=== PATIENT | female | born 1965 | race Asian ===

== ENCOUNTER 2020-10-29 18:27 | Outpatient (REF) | payer OTHER, SELFPAY ==
--- NOTE | 2020-10-29 18:29 | MR_ITS ---
EXAMINATION: MR LUMBAR SPINE WITHOUT CONTRAST CLINICAL INFORMATION: Lumbar region radiculopathy. COMPARISON: Lumbar spine radiographs from 06/28/2020. TECHNIQUE: MRI of the lumbar spine was obtained using routine sequences without contrast. FINDINGS: Mild degenerative grade 1 anterolisthesis of L4 on L5. Straightening of the normal cervical lordosis. Mild degenerative disc disease at L4-L5 with partial loss of disc height and desiccation. Mild Modic type II discogenic fatty change at L5-S1. Otherwise, normal homogeneous marrow signal throughout. Mild marrow edema within the posterior elements of L4-L5 suggestive of degenerative stress reaction. No additional suspicious marrow edema. The vertebral body heights are largely maintained. The conus medullaris terminates at the level of L2. The distal spinal cord is normal in appearance. No significant abnormalities of the paraspinal musculature. Mildly ectatic right-sided extrarenal pelvis. Otherwise, limited evaluation of the intra-abdominal structures without significant abnormalities. The abdominal aorta is of normal contour and caliber. AXIAL SPINAL LEVELS: T12-L1: Small central disc protrusion. There is mild right and no left facet joint arthropathy. There is no neural foraminal stenosis. There is no spinal canal stenosis. L1-L2: Shallow diffuse disc bulge. There is mild bilateral facet joint arthropathy. There is no neural foraminal stenosis. There is no spinal canal stenosis. L2-L3: Normal annular contour. There is mild right and no left facet joint arthropathy. There is no neural foraminal stenosis. There is no spinal canal stenosis. L3-L4: Small left foraminal disc protrusion. There is mild bilateral facet joint arthropathy. There is no neural foraminal stenosis. There is narrowing of the right greater than left subarticular zones with no overt spinal canal stenosis centrally. L4-L5: Mild to moderate diffuse disc bulge. There is moderate bilateral facet joint arthropathy with ligamentum flavum hypertrophy. There is moderate bilateral neural foraminal stenosis. There is stenosis of the subarticular zones with moderate spinal canal stenosis centrally. L5-S1: Shallow diffuse disc bulge. There is mild bilateral facet joint arthropathy. There is mild left and no right neural foraminal stenosis. There is no spinal canal stenosis. MR/MR lumbar spine wo con IMPRESSION: Mild to moderate multilevel degenerative spondyloarthropathy of the lumbar spine as described in detail above. Most notably, there is moderate spinal canal stenosis at L4-L5 with stenosis of the subarticular zones. There is also moderate neural foraminal stenoses at L4-L5 and mild narrowings of the subarticular zones at L3-L4. Mild marrow edema of the posterior elements of L4 and L5 suggestive of degenerative stress reaction.
== END 2020-10-29 18:28 | disposition home or self-care (01) ==
LOC: HO.MRI 18:27
PROVIDERS: PCP Internal Medicine; Visit Provider Internal Medicine
DX: M54.16 Radiculopathy, lumbar region (principal)
CPT/HCPCS: 72148

== ENCOUNTER 2020-11-28 08:58 | Outpatient (REF) | payer OTHER, SELFPAY ==
[2020-12-02 21:52] LABS: HPV mRNA E6/E7 Not Detected (Not Detected)
== END 2020-11-28 08:59 | disposition home or self-care (01) ==
LOC: HO.LAB 08:58
PROVIDERS: PCP Internal Medicine; Visit Provider Advanced Practice Midwife
DX: Z01.419 Encounter for gynecological examination (general) (routine) without abnormal findings (principal)
CPT/HCPCS: 36415; 87624; 87625; 88141; 88142

== ENCOUNTER 2020-12-16 13:32 | Outpatient (REF) | payer OTHER, SELFPAY ==
--- NOTE | ~2020-12-16 | XR_ITS ---
EXAMINATION: XR CERVICAL SPINE CLINICAL INFORMATION: Neck pain. COMPARISON: None. TECHNIQUE: 3 views of the cervical spine were obtained. FINDINGS: There is maintained cervical lordosis. Loss of C4-C5 disc height with minimal posterior cervical spondylosis is noted. The rest the disc heights are normal. There is mild levoscoliosis likely spasm. No acute fracture, dislocation or subluxation seen. The paravertebral soft tissues are normal. XR/XR cervical spine 3V IMPRESSION: Mild levoscoliosis, likely spasm. Degenerative disc changes with spondylosis at C4-C5 disc level.
== END 2020-12-16 13:33 | disposition home or self-care (01) ==
LOC: HO.HMGCX 13:32
PROVIDERS: PCP Internal Medicine; Visit Provider Internal Medicine
DX: M54.2 Cervicalgia (principal)
CPT/HCPCS: 72040

== ENCOUNTER 2020-12-20 14:00 | Outpatient (RCR) | payer OTHER, SELFPAY ==
--- NOTE | 2020-09-20 15:00 | MHC.PT.EP ---
[facility] [place] [facility] [place] Office [place] Office [address] George Trotter [address] [phone] F: [phone] F: [phone] F: [phone] F: [phone] Physical Therapy Plan of Care Date of Evaluation: 09/20/20 Date of Surgery: NA Diagnosis: trochanteric bursitis of R hip Assessment: 55 y/o F referred to PT with R trochanteric bursitis. She has pain for 3-4 months of insidious onset that is worse with prolonged sitting, standing, walking, stairs, and sleeping. Her pain travels from R lateral hip to ankle. Examination shows decreased R hip AROM, decreased R LE strength (?limited due to pain), decreased core strength, decreased R HS/ITB/pirifromis length, and increased pain. Recommend PT 2x/week for 6 weeks to address impairments, implement HEP, and optimize functional mobility. Frequency and Duration: The patient will be seen 2x/week for 6 weeks Short Term Goals: 3 weeks; 1. Initiate HEP 2. Improve R HS length to 20 degrees 3. Demonstrate neutral knee mechanics with squat 10/10x (IR genu valgus) [facility]ci Goals: 6 weeks: 1. I with HEP and self management of sx 2. Pt will be able to walk > 40min with pain < 3/10 3 Pt will be able to sleep through the night with pain < 3/10 Treatment Plan: Modalities to reduce pain, spasms and effusion. Manual therapy to restore motion and function. Therapeutic exercise to improve strength and flexibility. Neuromuscular re-education for posture and balance. Therapeutic activities to return to functional activities of daily living. Please sign and return to therapist. Thank you for your referral.
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
== END 2020-12-20 15:30 | disposition other institution (70) ==
LOC: HO.PTCHIC 14:00
PROVIDERS: PCP Internal Medicine; Visit Provider Physician Assistant
DX: M70.61 Trochanteric bursitis, right hip (principal)
CPT/HCPCS: 97110; 97112; 97140; 97161; 97530

== ENCOUNTER 2021-05-07 15:29 | Outpatient (REF) | payer OTHER, SELFPAY ==
--- NOTE | ~2021-05-07 | US_ITS ---
EXAMINATION: PELVIC ULTRASOUND CLINICAL INFORMATION: Pain COMPARISON: None TECHNIQUE: Transabdominal and transvaginal pelvic ultrasound was performed. Transvaginal exam was performed for better visualization of the uterus and ovaries. FINDINGS: The uterus is anteverted and measures 6.2 x 3.2 x 4.6 cm in dimension. No focal uterine lesion is seen. Endometrial thickness is normal measuring 0.4 cm. The ovaries are normal-appearing. The right ovary measures 1.8 x 1.3 x 1.6 cm. The left ovary measures 3.5 x 0.9 x 2.4 cm. There is no fluid in the pelvis. US/US pelvic and transvaginal IMPRESSION: Unremarkable exam.
== END 2021-05-07 15:30 | disposition home or self-care (01) ==
LOC: HO.HMGCX 15:29
PROVIDERS: PCP Internal Medicine; Visit Provider Internal Medicine
DX: R10.2 Pelvic and perineal pain (principal)
CPT/HCPCS: 76830; 76856

== ENCOUNTER 2021-09-09 16:00 | Outpatient (REF) | payer OTHER, SELFPAY ==
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
== END 2021-09-09 16:01 | disposition home or self-care (01) ==
LOC: HO.HMGCX 16:00
PROVIDERS: PCP Internal Medicine; Visit Provider Internal Medicine
DX: S60.00XA Contusion of unspecified finger without damage to nail, initial encounter (principal)
CPT/HCPCS: 73130

== ENCOUNTER 2023-04-01 23:19 | Emergency (ER) | payer OTHER, SELFPAY ==
--- NOTE | 2023-04-01 | ECG_ITS ---
Test Reason : SYNCOPE Blood Pressure : / mmHG Vent. Rate : 084 BPM Atrial Rate : 084 BPM P-R Int : 154 ms QRS Dur : 086 ms QT Int : 352 ms P-R-T Axes : 067 038 027 degrees QTc Int : 415 ms Normal sinus rhythm Normal ECG No previous ECGs available Referred By: Generic ED Physician Electronically Signed By:ASHISH EDEN
[2023-04-01 23:20] VITALS: BP 144/86; PULSE 120; O2SAT 98
[2023-04-01 23:36] VITALS: BP 122/79; BP 146/88; PULSE 120; PULSE 93; RESP 22; TEMP 36.6; O2SAT 100; O2SAT 99; BMI 27.6
[2023-04-01 23:41] VITALS: PULSE 95; O2SAT 100
[2023-04-01 23:59] LABS: MANUAL DIFF FLAG NO
[2023-04-02] LABS: Basophils Absolute Auto 0.1 X10*3/uL (0.0-0.2); Basophils Percent Auto 0.8 % (0-2); Eosinophils Absolute Auto 0.3 X10*3/uL (0.0-0.4); Eosinophils Percent Auto 2.7 % (0-4); Hematocrit 34.4 % (37.0-47.0); Hemoglobin 11.1 g/dl (12.0-16.0); Imm Gran Abs Auto 0.03 X10*3/uL (0.00-0.03); Imm Gran Pct Auto 0.3 % (0.0-0.4); Mean Corpuscular HGB Conc 32.3 g/dl (31.0-35.0); Mean Corpuscular Hemoglobin 27.9 pg (27.0-33.0); Mean Corpuscular Volume 86.4 fL (80.0-98.0); Mean Platelet Volume 9.4 fL (9.4-12.3); Monocytes Absolute Auto 0.7 X10*3/uL (0.1-1.2); Monocytes Percent Auto 7.7 % (2-11); Neutrophils Absolute Auto 6.2 x10*3/uL (2.0-8.3); Neutrophils Percent Auto 66.5 % (45-73); Platelet Count 213 X10*3/uL (160-400); Red Blood Count 3.98 X10*6/uL (4.20-5.50); Red Cell Distribution Width 13.4 % (11.0-16.0); White Blood Count 9.3 X10*3/uL (4.8-10.8)
[2023-04-02 00:23] LABS: Alanine Aminotransferase 22 U/L (0-31); Albumin Level 4.4 g/dL (3.5-5.0); Alkaline Phosphatase 65 U/L (39-117); Anion Gap 15 (12-20); Aspartate Amino Transferase 18 U/L (5-31); Bilirubin Total 0.3 mg/dL (0.0-1.0); Blood Urea Nitrogen 23 mg/dL (9-16); Calcium 9.1 mg/dL (8.4-10.2); Carbon Dioxide 24 mmol/L (22-29); Chloride 107 mmol/L (96-108); Estimated Glomerular Filt Rate > 60; Glucose Random 103 mg/dL (60-115); Potassium 4.5 mmol/L (3.3-5.1); Sodium 141 mmol/L (135-145); Total Protein 7.8 g/dL (6.5-8.0)
[2023-04-02 00:24] LABS: Troponin-I High Sensitivity 5.4 ng/L (<3.5-17.0)
--- OUTSIDE RECORDS SUMMARY | 2023-04-02 00:53 | XMS_ITS | Continuity of Care Document ---
Author Name Unknown Organization [facility] Address [address] [place] [address], [address] [place] [address]- Care Team Providers Care Certified Medical Asst Name Role Phone Hilton BACON, Naldo Primary Care Physician [phone] [place] [facility] [place] Date[place]s): 12/11/20 - 01/16/21 [facility] [address] [place] [address], [address] [place], [place] [address] Attending Physician: Jennifer Alejo MD Referring Physician: Naldo Canela MD Allergies, Adverse Reactions, Alerts Substance Reaction Severity Status penicillin Active Medications Hydroxychloroquine = 200 mg, By Mouth, Daily, 0 Refills, Maintenance, 12/18/20 12:48:00 EST, Partial fill upon patientrequest if the prescription is for a schedule II opioid drug. Start Date: 12/18/20 Status: Ordered Naproxen By Mouth, 0 Refills, Maintenance, 12/18/20 12:47:00 EST, Partial fill upon patient request if the prescription is for a schedule II opioid drug. Start Date: 12/18/20 Status: Ordered Tramadol By Mouth, 0 Refills, Maintenance, 12/18/20 12:47:00 EST, Partial fill upon patient request if the prescription is for a schedule II opioid drug. Start Date: 12/18/20 Status: Ordered
--- OUTSIDE RECORDS SUMMARY | 2023-04-02 00:53 | XMS_ITS | Continuity of Care Document ---
Author Name Unknown Organization [facility] Address [address] [place] [address]- Care Team Providers Care Irrigation Equipment Installer Name Role Phone Hilton BACON, Asma Primary Care Physician [phone] Encounter [facility] [place] Date(s): 02/28/21 - 03/30/[address] [address]- Attending Physician: Bob Foy Admitting Physician: Admtr, Ar8 Referring Physician: Admtr, Ar8 Allergies, Adverse Reactions, Alerts Substance Reaction Severity [...] opioid drug. Start Date: 12/18/20 Status: Ordered PredniSONE short duration, By Mouth, Daily, 0 Refills, Maintenance, 02/12/21 18:37:00 EDT, Partial fill upon patient request if the prescription is for a schedule II opioid drug. Start Date: 02/12/21 Status: Ordered Tramadol By Mouth, 0 Refills, Maintenance, 12/18/20 12:47:00 EST, Partial fill upon patient request if the prescription is for a schedule II opioid drug. Start Date: 12/18/20 Status: Ordered
--- OUTSIDE RECORDS SUMMARY | 2023-04-02 00:53 | XMS_ITS | Continuity of Care Document ---
Author Name Unknown Organization [facility] Address [address] [place] [address] [place], [address] [place] [address]- Care Team Providers Care Chemistry Technician Name Role Phone Hilton BACON, Asma Primary Care Physician Encounter [facility] [place] Date(s): 12/05/20 - 01/04/21 [facility] [address] [place] [address], [address] [place], [place] [address] Allergies, Adverse Reactions, Alerts Substance Reaction Severity [...]
--- OUTSIDE RECORDS SUMMARY | 2023-04-02 00:53 | XMS_ITS | Continuity of Care Document ---
Author Name Unknown Organization [facility] Address [address] [place] [address], [address] [place] [address]- Care Team Providers Care Curbstone Setter Name Role Phone Hilton BACON, Naldo Primary Care Physician [place] [facility] [place]): [place] 01/15/21 [facility] [address] [place] [address], [address] [place], [place] [address] Attending Physician: Reinaldo Michele MD Referring Physician: Naldo Canela MD Allergies, [...]
--- OUTSIDE RECORDS SUMMARY | 2023-04-02 00:53 | XMS_ITS | Continuity of Care Document ---
Author Name Unknown Organization [facility] Address [address] [place] [address], [address] [place] [address]- Care Team Providers Care Railroad Track Repair Supervisor Name Role Phone Hilton BACON, Asma Primary Care Physician Encounter [facility] [place] Date(s): 12/26/20 - 01/25/21 [facility] [address] [place] [address], [address] [place], [place] [address] Attending Physician: Bob Foy Admitting Physician: AdmtrBob Referring Physician: Admtr, Ar8 Allergies, Adverse Reactions, [...]
--- OUTSIDE RECORDS SUMMARY | 2023-04-02 00:53 | XMS_ITS | Continuity of Care Document ---
Author Name Unknown Organization [facility] Address [address] [place] [address]- Care Team Providers Care Phone Specialist Name Role Phone Hilton BACON, Asma Primary Care Physician Encounter [facility] [place] Date(s): 07/11/21 - 08/10/21 [facility] [address] [address]- Attending Physician: Bob Foy Admitting Physician: AdmtrBob [...]
--- NOTE | 2023-04-02 01:09 | ED.SYNCOPE ---
HPI - Syncope General Chief Complaint: Syncope Stated Complaint: syncope episode after hyperventilation Time Seen by Provider: 04/02/23 00:59 Source: patient and family Mode of arrival: EMS Limitations: no limitations History of Present Illness HPI narrative: Patient comes to the emergency room complaining a syncopal episode. Unfortunately, earlier today, patient is 35-year-old son unexpectedly. Patient denies any chest pain or shortness of breath. Related Data Home Medications Medication Instructions Recorded Confirmed hydroxychloroquine 200 mg tablet 200 mg PO BID 10/22/20 04/29/21 simvastatin 40 mg tablet 40 mg PO BEDTIME 10/22/20 04/29/21 Previous Rx's Medication Instructions Recorded Lumbar brace #1 ea 02/18/21 baclofen 10 mg tablet 10 mg PO BEDTIME PRN muscle spasm 03/02/21 30 days #30 tabs naproxen 500 mg tablet 500 mg PO BID #20 tabs 09/11/21 lorazepam 1 mg tablet (Ativan) 1 mg PO BID PRN anxiety #7 tabs 04/02/23 Allergies Allergy/AdvReac Type Severity Reaction Status Date / Time Penicillins [PENICILLINS] Allergy Intermediate SWELLING Verified 09/09/21 15:40 penicillin V Allergy Unknown swelling Verified 09/09/21 15:40 Review of Systems Review of Systems: Constitutional : No Weight loss, No Fever, No Chills, No Night Sweats, No Fatigue, No Malaise ENT/Mouth : No Hearing loss, No Ear Pain, No Nasal Congestion, No Sinus Pain, No Hoarseness, No sore throat, No Rhinorrhea, No Swallowing Difficulty Eyes: No Eye Pain, No Swelling, No Redness, No Foreign Body, No Discharge, No Vision Changes Cardiovascular : No Chest Pain, No SOB, No Dyspnea on Exertion, No Orthopnea, No Edema, No Palpitations Respiratory : No Cough, No Sputum, No Wheezing, No Smoke Exposure, No Dyspnea Gastrointestinal : No Nausea, No Vomiting, No Diarrhea, No Constipation, No abdominal Pain, No Hematochezia, No Melena Genitourinary : no irregular bleeding, No Dysuria, No Urinary Frequency, No Hematuria, No Urinary Incontinence, No Urgency, No Flank Pain, No Urinary Flow Changes, No Hesitancy Musculoskeletal : No joint pain, No Myalgias, No Joint Swelling Skin : No Skin Lesions, No rash Neuro : No Weakness, No Numbness, No Paresthesias, patient had 1 syncopal episode No Dizziness, No Headache Psych : No Anxiety/Panic, No Depression, No SI/HI/AH/VH, No Social Issues, Heme/Lymph: No Bruising, No Bleeding,No Lymphadenopathy Endocrine : No Polyuria, No Polydipsia, No Temperature Intolerance [facility] Past Medical History Medical History Breast screening Cervical pain (neck) Chronic pauciarticular arthritis Constipation, slow transit Difficulty sleeping Hemorrhoids Lipid disorder Lumbar pain PPD positive Right lumbar radiculitis Vitamin D deficiency Surgical History No pertinent past surgical history Family History Family History Father Acute myocardial infarction Mother Parkinson disease Maternal Grandfather No problems noted. Maternal Grandmother No problems noted. Paternal Grandfather No problems noted. Paternal Grandmother No problems noted. Brother No problems noted. Brother No problems noted. Sister No problems noted. Son No problems noted. Daughter No problems noted. Daughter No problems noted. Daughter No problems noted. Social History Social History Housing: House Alcohol intake: never Patient Tobacco Use Status: Never used Tobacco Second Hand Smoke Exposure: No Advance Directives: No Advance Directives Information Provided: Yes Current occupational status: employed Sexual orientation: Straight/Heterosexual Gender identity: Female Physical Exam Vital Signs: Vital Signs: Last Vital Signs Temp 97.9 F 04/01/23 23:36 Pulse 93 04/01/23 23:36 Resp 22 H 04/01/23 23:36 BP 122/79 04/01/23 23:36 Pulse Ox 100 04/01/23 23:41 O2 Del Method Room Air 04/01/23 23:41 BMI result Body Mass Index 27.6 Medical Decision Making Medical Decision Making MDM Narrative: -interpretation of EKG: Sinus rhythm, heart rate 84, no ST segment depression or elevation, no T-wave inversion, QTC 415 -troponin 1. Negative -patient likely had a vasovagal symptoms given the unfortunate circumstances -patient denies any chest pain or shortness of breath. Lab Data 04/01/23 23:55 04/01/23 23:55 Labs: Lab Results 04/01/23 04/01/23 04/01/23 Range/Units 23:55 23:55 23:55 WBC 9.3 (4.8-10.8) X10*3/uL RBC 3.98 L (4.20-5.50) X10*6/uL Hgb 11.1 L (12.0-16.0) g/dl Hct 34.4 L (37.0-47.0) % MCV 86.4 (80.0-98.0) fL MCH 27.9 (27.0-33.0) pg MCHC 32.3 (31.0-35.0) g/dl RDW 13.4 (11.0-16.0) % Plt Count 213 (160-400) X10*3/uL MPV 9.4 (9.4-12.3) fL Immature Gran % (Auto) 0.3 (0.0-0.4) % Neut % (Auto) 66.5 (45-73) % Lymph % (Auto) 22.0 (20-40) % [place] % (Auto) 7.7 (2-11) % Eos % (Auto) 2.7 (0-4) % Baso % (Auto) 0.8 (0-2) % Lymph # (Auto) 2.0 (1.2-4.9) X10*3/uL [place] # (Auto) 0.7 (0.1-1.2) X10*3/uL Eos # (Auto) 0.3 (0.0-0.4) X10*3/uL Baso # (Auto) 0.1 (0.0-0.2) X10*3/uL Abs Immat Gran (auto) 0.03 (0.00-0.03) X10*3/uL Absolute Neuts (auto) 6.2 (2.0-8.3) x10*3/uL Absolute Nucleated RBC 0.000 (0.0-0.012) X10*3/uL Nucleated RBC % (auto) 0.0 (0.0-0.2) /100WBC Sodium 141 (135-145) mmol/L Potassium 4.5 (3.3-5.1) mmol/L Chloride 107 (96-108) mmol/L Carbon Dioxide 24 (22-29) mmol/L Anion Gap 15 (12-20) BUN 23 H (9-16) mg/dL Creatinine 0.91 (0.5-1.4) mg/dL Estim Creat Clear Calc 70.0 Estimated GFR > 60 Random Glucose 103 (60-115) mg/dL Calcium 9.1 (8.4-10.2) mg/dL Total Bilirubin 0.3 (0.0-1.0) mg/dL AST 18 (5-31) U/L ALT 22 (0-31) U/L Alkaline Phosphatase 65 (39-117) U/L Troponin I High Sens 5.4 (<3.5-17.0) ng/L Total Protein 7.8 (6.5-8.0) g/dL Albumin 4.4 (3.5-5.0) g/dL Discharge Plan Discharge Clinical Impression: Vasovagal syncope Patient Disposition: Home, Self-Care Instructions: Syncope (ED) Additional Instructions: Please follow-up with your primary care physician tomorrow. If you have any worsening or new symptoms, please return to the emergency room or call 911 Prescriptions: New lorazepam [Ativan] 1 mg tablet 1 mg PO BID PRN (Reason: anxiety) Qty: 7 0RF No Action (DME) Lumbar brace Medium See Rx Instructions .Route .MEDSUPPLY Qty: 1 0RF Rx Instructions: As directed baclofen 10 mg tablet 10 mg PO BEDTIME PRN (Reason: muscle spasm) 30 Days Qty: 30 0RF naproxen 500 mg tablet 500 mg PO BID Qty: 20 0RF simvastatin 40 mg tablet 40 mg PO BEDTIME hydroxychloroquine 200 mg tablet 200 mg PO BID
[2023-04-02] MEDS: LORazepam 1 MG TABLET PO (01:15)
[2023-04-02 01:25] VITALS: BP 132/69; PULSE 89; RESP 16; TEMP 36.8; O2SAT 99
== END 2023-04-02 01:27 | disposition home or self-care (01) ==
PROVIDERS: Emergency Provider Emergency Medicine
DX: R55 Syncope and collapse (principal); E78.5 Hyperlipidemia, unspecified; Z79.02 Long term (current) use of antithrombotics/antiplatelets; Z79.899 Other long term (current) drug therapy
CPT/HCPCS: 36415; 80053; 84484; 85025; 93005; 99283; 99285

== ENCOUNTER 2023-09-24 13:52 | Outpatient (AMB) | payer OTHER, SELFPAY ==
--- NOTE | 2023-09-24 14:00 | MHC.PC.OV ---
Vital Signs 09/24/23 14:02 Height 5 ft 6 in Weight 158 lb 6 oz BMI 25.6 BP 104/66 Blood Pressure Location Rt brachial Position Sitting Pulse 82 Pulse Source Pulse Oximeter Pulse Oximetry (%) 96 Oxygen Delivery Method Room Air Intake Visit Reasons: Left leg pain Allergies Penicillins [PENICILLINS] Allergy (Intermediate, Verified 09/24/23 14:03) SWELLING penicillin V Allergy (Unknown, Verified 09/24/23 14:03) swelling Medication List - Last Reconciled 09/24/23 by Naldo Canela MD baclofen 10 mg PO BEDTIME PRN 30 days hydroxychloroquine 200 mg PO BID lorazepam (Ativan) 1 mg PO BID PRN lorazepam 1 mg PO BID PRN [Lumbar brace As directed] simvastatin 40 mg PO BEDTIME Tobacco use date assessed: 09/24/23 Dental Screening Dental Screen Date: 09/24/23 Did you have a dental visit in the last 12 months?: Yes Did you have a dental problem in the last 6 months where you did not have access to dental care?: No Was dental information given to patient?: Patient has dentist HPI Left leg pain HPI Details Patient is 58-year-old female with a history of rheumatoid arthritis came in with a chief complaint of pain lower back radiating to left upper leg She had MRI lumbar spine 2020 Which showed Mild to moderate multilevel degenerative spondyloarthropathy of the lumbar spine as described in detail above. Most notably, there is moderate spinal canal stenosis at L4-L5 with stenosis of the subarticular zones. There is also moderate neural foraminal stenoses at L4-L5 and mild narrowings of the subarticular zones at L3-L4. Mild marrow edema of the posterior elements of L4 and L5 suggestive of degenerative stress reaction. Taking diclofenic thru [facility]umatology [facility] had cortison injection through him as well, which did help her for 3 wks Patient says that she is avoiding to get another course of cortisone injection Currently patient is on hydrochloroquine through rheumatology Labs are through rheumatology I am prescribing a tramadol to be taken at night and prednisone 20 mg once a day for 7 days [facility] Medical History Cervical pain (neck) Breast screening Right lumbar radiculitis Lumbar pain Difficulty sleeping Vitamin D deficiency Constipation, slow transit Lipid disorder Hemorrhoids PPD positive Chronic pauciarticular arthritis Surgical History No pertinent past surgical history Family History Father Acute myocardial infarction Mother Parkinson disease Maternal Grandfather No problems noted. Maternal Grandmother No problems noted. Paternal Grandfather No problems noted. Paternal Grandmother No problems noted. Brother No problems noted. Brother No problems noted. Sister No problems noted. Son No problems noted. Daughter No problems noted. Daughter No problems noted. Daughter No problems noted. Social History Housing: House Alcohol intake: never Patient Tobacco Use Status: Never used Tobacco e-Cigarette/Vaping Use: Never Used Second Hand Smoke Exposure: No Current occupational status: employed Sexual orientation: Straight/Heterosexual Gender identity: Female Cognitive needs: No Hearing needs: No Vision needs: No Questionnaire PHQ-9 Over the last 2 weeks, how often have you been bothered by any of the following problems? [id number] - PHQ-9 Billing: Patient declined-do not bill Source: Developed by Drs. Reinaldo Rivera, Carly Perkins, Girish Cage and colleagues, with an educational kesha from [employer]. Thrive Questionnaire Date Thrive assessed: 09/24/23 I am a: Patient What is your living situation today?: I have a steady place to live Within the past 12 months, did the food you bought not last and you didn't have the money to get more?: Never true Within the past 12 months, did you worry whether your food would run out before you got money to buy more?: Never true Do you have trouble paying for medicines?: No Do you have trouble getting transportation to medical appointments?: No Do you have trouble paying your heating and electricity bill?: Yes Do you have trouble taking care of your child, family member or friend?: No Do you have trouble with day-to-day activities such as bathing, preparing meals, shopping, managing finances, etc.?: No Are you currently unemployed and looking for a job?: No Are you interested in more education?: No AUDIT C Alcohol Use Questionnaire (AUDIT-C) 1. How often do you have a drink containing alcohol?: Never 3. How often do you have six or more drinks on one occasion?: Never Total Score: 0 Score Reviewed/Action Taken: Yes JANETH-7 AMB Questionnaire JANETH-7 Date JANETH - 7 assessed: 09/24/23 Source: Developed by Drs. Reinaldo Rivera, Carly Perkins, Girish Cage and colleagues, with an educational kesha from [employer]. JANETH-7 Assessment Billing JANETH-7 Assessment Tool: pt declined-do not bill Review of Systems Const Denies chills and Denies fever(s) ENT Denies epistaxis and Denies nasal discharge Card Denies chest pain Resp Denies chest congestion, Denies cough and Denies hemoptysis GI Denies diarrhea and Denies nausea Skin/Breast Denies rash Neuro Reports no additional complaints Psych Reports no additional complaints Endo Reports no additional complaints Physical exam (Primary Care) Vital Signs: Last Vital Signs Pulse 82 09/24/23 14:02 BP 104/66 09/24/23 14:02 Pulse Ox 96 09/24/23 14:02 Oxygen Delivery Method Room Air 09/24/23 14:02 BMI result Body Mass Index 25.6 Tobacco/Smoking Status: Tobacco use Status Tobacco use date assessed 09/24/23 09/24/23 14:03 Patient Tobacco Use Status Never used Tobacco 09/24/23 14:02 e-Cigarette/Vaping Use Never Used 09/24/23 14:03 Thrive Assessment: Date of Thrive Assessment Date Thrive assessed 09/24/23 09/24/23 14:44 Const General: cooperative, comfortable and no acute distress Orientation/consciousness: patient oriented x3 [facility] Head: Yes normocephalic Eyes General: appearance normal, both eyes and all related structures Neck Neck: Yes supple Resp Effort & Inspection: normal respiratory effort, no cough and no stridor Cardio Rhythm: regular rhythm Heart sounds: S1 normal heart sound present and S2 normal heart sound present Skin General skin exam: turgor normal Neuro Other: Straight leg negative bilateral, motor sensory intact General: patient oriented x3, tone normal and moves all extremities Extrem Right lower extremity: no edema Left lower extremity: no edema Office Procedures Flu Questionnaire Does the patient have a severe egg allergy?: No Does the patient have severe life threatening allergies?: No Does the patient have a fever or illness today?: No Has the patient ever had Guillain-Dairy Syndrome?: No Has the patient ever had any past reaction to a flu shot?: No Immunizations flu vacc [id number] 6mos up(PF) 60 mcg(15 mcgx4)/0.5 mL IM syringe Performing Provider: Naldo Canela MD Performing Location: [facility] [place] [facility] Administered by: Sara Fam CMA on 09/24/23 14:17 Dose Route Admin Location Dispensed Lot Number Expiration Date NDC [employer] 0.5 mL IM Left Deltoid 0.5 mL [id number] 05/07/24 [id number] [employer] VIS Given Date VIS Provided VIS Publication Date 09/24/23 Single Vaccine 21 Eligibility Eligibility Date Funding Source Not [facility] Eligible 09/24/23 Private Assessment and Plan Assessment & Plan (1) Spinal stenosis, lumbar: Code(s): M48.061 - Spinal stenosis, lumbar region without neurogenic claudication Qualifiers: Neurogenic claudication status: with neurogenic claudication Qualified Code(s): M48.062 - Spinal stenosis, lumbar region with neurogenic claudication (2) DJD (degenerative joint disease), lumbar: Code(s): M47.816 - Spondylosis without myelopathy or radiculopathy, lumbar region Qualifiers: Spinal osteoarthritis complication: with radiculopathy Qualified Code(s): M47.26 - Other spondylosis with radiculopathy, lumbar region (3) Spondyloarthropathy of lumbar spine: Code(s): M47.816 - Spondylosis without myelopathy or radiculopathy, lumbar region (4) Chronic pauciarticular arthritis: Code(s): M06.80 - Other specified rheumatoid arthritis, unspecified site (5) Lipid disorder: Code(s): E78.9 - Disorder of lipoprotein metabolism, unspecified (6) Pain management: Code(s): R52 - Pain, unspecified Plan Patient is 58-year-old female with a history of rheumatoid arthritis came in with a chief complaint of pain lower back radiating to left upper leg She had MRI lumbar spine 2019 Which showed Mild to moderate multilevel degenerative spondyloarthropathy of the lumbar spine as described in detail above. Most notably, there is moderate spinal canal stenosis at L4-L5 with stenosis of the subarticular zones. There is also moderate neural foraminal stenoses at L4-L5 and mild narrowings of the subarticular zones at L3-L4. Mild marrow edema of the posterior elements of L4 and L5 suggestive of degenerative stress reaction. Taking diclofenic thru Rhumatology Dr Knox [facility] had cortison injection through him as well, which did help her for 3 wks Patient says that she is avoiding to get another course of cortisone injection Currently patient is on hydrochloroquine through rheumatology Labs are through rheumatology I am prescribing a tramadol to be taken at night and prednisone 20 mg once a day for 7 days She also have a history of lipid disorder and has not been seen here for a while She will book physical exam so we can order some labs for her patient can restart the medication if needed She has stop taking it Orders: Orders Influenza [id number] Immunization Today Z23 - Encounter for immunization Medications: New prednisone 20 mg PO DAILY 7 tabs 0RF 7 days tramadol 50 mg PO BEDTIME PRN 14 tabs 0RF pain 14 days Coding Level of Care Code Est Pt Level 4 (57201) Diagnoses Spinal stenosis of lumbar region with neurogenic claudication M48.062 Neurogenic claudication status: with neurogenic claudication Osteoarthritis of spine with radiculopathy, lumbar region M47.26 Spinal osteoarthritis complication: with radiculopathy Spondyloarthropathy of lumbar spine M47.816 Chronic pauciarticular arthritis M06.80 Lipid disorder E78.9 Pain management R52
[2023-09-24 14:02] VITALS: BP 104/66; PULSE 82; O2SAT 96; BMI 25.6
== END 2023-09-24 14:31 | disposition home or self-care (01) ==
PROVIDERS: Visit Provider Internal Medicine
DX: M48.062 Spinal stenosis, lumbar region with neurogenic claudication (principal); M06.80 Other specified rheumatoid arthritis, unspecified site; M47.26 Other spondylosis with radiculopathy, lumbar region; Z23 Encounter for immunization; M47.816 Spondylosis without myelopathy or radiculopathy, lumbar region; E78.9 Disorder of lipoprotein metabolism, unspecified; R52 Pain, unspecified
CPT/HCPCS: 90471; 90686; 99214

== ENCOUNTER 2024-02-11 13:31 | Outpatient (AMB) | payer OTHER, SELFPAY ==
[2024-02-11 13:33] VITALS: BP 104/60; PULSE 86; O2SAT 98; BMI 24.5
--- NOTE | 2024-02-11 13:33 | MHC.PC.OV ---
Vital Signs 02/11/24 13:33 Height 5 ft 6 in Weight 152 lb BMI 24.5 BP 104/60 Blood Pressure Location Rt brachial Position Sitting Pulse 86 Pulse Source Pulse Oximeter Pulse Oximetry (%) 98 Oxygen Delivery Method Room Air Intake Visit Reasons: Back & abd pain, headache Intake Note: Pt is here today for a sick visit. Pt c/o headaches body aches for 2-3 weeks now.Pt also c/o muscle spasms at night that she can not sleep. Allergies Penicillins [PENICILLINS] Allergy (Intermediate, Verified 02/11/24 13:37) SWELLING penicillin V Allergy (Unknown, Verified 02/11/24 13:37) swelling Medication List - Last Reconciled 02/11/24 by Naldo Canela MD hydroxychloroquine 200 mg PO BID [Lumbar brace As directed] Tobacco use date assessed: 02/11/24 Dental Screening Dental Screen Date: 02/11/24 Did you have a dental visit in the last 12 months?: Yes Did you have a dental problem in the last 6 months where you did not have access to dental care?: No Was dental information given to patient?: Patient has dentist HPI Back & abd pain, headache HPI Details Patient is 58-year-old female came in today to talk about pressure-like feeling around her head neck and upper back area Patient says that she is not able to sleep at night as her is in hospital, she spent all day in a hospital she comes home and then she can not stop thinking. She feels exhausted and fatigued Last year in March she lost her son as well which is causing some depression. She has missed her physical exam appointment that was scheduled in December with me I am starting her on zolpidem so she can start sleeping at least, and that will help her feel better Patient is to return in 4 weeks for follow-up [facility] Medical History Cervical pain (neck) Breast screening Right lumbar radiculitis Lumbar pain Difficulty sleeping Vitamin D deficiency Constipation, slow transit Lipid disorder Hemorrhoids PPD positive Chronic pauciarticular arthritis Surgical History No pertinent past surgical history Family History Father Acute myocardial infarction Mother Parkinson disease Maternal Grandfather No problems noted. Maternal Grandmother No problems noted. Paternal Grandfather No problems noted. Paternal Grandmother No problems noted. Brother No problems noted. Brother No problems noted. Sister No problems noted. Son No problems noted. Daughter No problems noted. Daughter No problems noted. Daughter No problems noted. Social History Housing: House Alcohol intake: never Patient Tobacco Use Status: Never used Tobacco e-Cigarette/Vaping Use: Never Used Second Hand Smoke Exposure: No service: No Current occupational status: employed Sexual orientation: Straight/Heterosexual Gender identity: Female Cognitive needs: No Hearing needs: No Vision needs: No Questionnaire Thrive Questionnaire Date Thrive assessed: 09/24/23 AUDIT C Alcohol Use Questionnaire (AUDIT-C) 1. How often do you have a drink containing alcohol?: Never 3. How often do you have six or more drinks on one occasion?: Never Total Score: 0 JANETH-7 AMB Questionnaire JANETH-7 Date JANETH - 7 assessed: 09/24/23 Source: Developed by Drs. Reinaldo Rivera, Carly Perkins, Girish Cage and colleagues, with an educational kesha from [email or web address]. Review of Systems Const Denies chills and Denies fever(s) ENT Denies epistaxis and Denies nasal discharge Card Denies chest pain Resp Denies chest congestion, Denies cough and Denies hemoptysis GI Denies diarrhea and Denies nausea Skin/Breast Denies rash Neuro Reports no additional complaints Psych Reports no additional complaints Endo Reports no additional complaints Physical exam (Primary Care) Vital Signs: Last Vital Signs Pulse 86 02/11/24 13:33 BP 104/60 02/11/24 13:33 Pulse Ox 98 02/11/24 13:33 Oxygen Delivery Method Room Air 02/11/24 13:33 BMI result Body Mass Index 24.5 Tobacco/Smoking Status: Tobacco use Status Tobacco use date assessed 02/11/24 02/11/24 13:39 Patient Tobacco Use Status Never used Tobacco 02/11/24 13:39 e-Cigarette/Vaping Use Never Used 02/11/24 13:39 Thrive Assessment: Date of Thrive Assessment Date Thrive assessed 09/24/23 02/11/24 13:39 Const General: cooperative, comfortable and no acute distress Orientation/consciousness: patient oriented x3 [facility]EN[facility] Head: Yes normocephalic Eyes General: appearance normal, both eyes and all related structures Neck Neck: Yes supple Resp Effort & Inspection: normal respiratory effort, no cough and no stridor Cardio Rhythm: regular rhythm Heart sounds: S1 normal heart sound present and S2 normal heart sound present Skin General skin exam: turgor normal Neuro General: patient oriented x3, tone normal and moves all extremities Extrem Right lower extremity: no edema Left lower extremity: no edema Assessment and Plan Assessment & Plan (1) Tension headache: Code(s): G44.209 - Tension-type headache, unspecified, not intractable (2) Muscle tension pain: Code(s): M79.10 - Myalgia, unspecified site (3) Depression, major, single episode: Code(s): F32.9 - Major depressive disorder, single episode, unspecified Qualifiers: Active/Remission status: currently active Major depression episode severity: moderate Qualified Code(s): F32.1 - Major depressive disorder, single episode, moderate (4) Stress at home: Code(s): F43.9 - Reaction to severe stress, unspecified (5) Unable to sleep: Code(s): G47.00 - Insomnia, unspecified Qualifiers: Insomnia type: adjustment Qualified Code(s): F51.02 - Adjustment insomnia (6) Tired: Code(s): R53.83 - Other fatigue Plan Patient is 58-year-old female came in today to talk about pressure-like feeling around her head neck and upper back area Patient says that she is not able to sleep at night as her is in hospital, she spent all day in a hospital she comes home and then she can not stop thinking. She feels exhausted and fatigued Last year in March she lost her son as well which is causing some depression. She has missed her physical exam appointment that was scheduled in December with me I am starting her on zolpidem so she can start sleeping at least, and that will help her feel better Patient is to return in 4 weeks for follow-up Medications: New diclofenac sodium 75 mg PO BID zolpidem 10 mg PO BEDTIME PRN 30 tabs 0RF sleep Coding Level of Care Code Est Pt Level 4 (87259) Diagnoses Tension headache G44.209 Muscle tension pain M79.10 Current moderate episode of major depressive disorder without prior episode F32.1 Active/Remission status: currently active Major depression episode severity: moderate Stress at home F43.9 Adjustment insomnia F51.02 Insomnia type: adjustment Tired R53.83
== END 2024-02-11 14:02 | disposition home or self-care (01) ==
PROVIDERS: Visit Provider Internal Medicine
DX: G44.209 Tension-type headache, unspecified, not intractable (principal); M79.10 Myalgia, unspecified site; F32.1 Major depressive disorder, single episode, moderate; F43.9 Reaction to severe stress, unspecified; F51.02 Adjustment insomnia; R53.83 Other fatigue
CPT/HCPCS: 99214

== ENCOUNTER 2024-03-30 08:43 | Outpatient (AMB) | payer SELFPAY ==
--- NOTE | 2024-03-30 08:54 | A.OFFPC_ITS ---
Intake Visit Reasons: Discuss Pain~[phone] Allergies Penicillins [PENICILLINS] Allergy (Intermediate, Verified 03/30/24 10:24) SWELLING penicillin V Allergy (Unknown, Verified 03/30/24 10:24) swelling Medication List - Last Reconciled 03/30/24 by Naldo Canela MD diclofenac sodium 75 mg PO BID hydroxychloroquine 200 mg PO BID [Lumbar brace As directed] zolpidem 10 mg PO BEDTIME PRN Tobacco use date assessed: 03/30/24 Dental Screening Dental Screen Date: 03/30/24 Did you have a dental visit in the last 12 months?: Yes Did you have a dental problem in the last 6 months where you did not have access to dental care?: No Was dental information given to patient?: Patient has dentist HPI Discuss Pain~[phone] HPI Details Patient is 58 year old female in lot of stress due to sickness of her spend most of her time in hospital with him unable to sleep was c/o of BRISENO, upper back pain Hip pain, which is chronic for the patient also have depression, anxiety, lipid disorder and multiple joint arthritis i prescribed Zolpidem and diclofenic last visit 4 wks ago she felt better was able to sleep 6 hrs but dont have medication any more refill provided lab order placed to be done fasting f/u 3 M [facility] Medical History Cervical pain (neck) Breast screening Right lumbar radiculitis Lumbar pain Difficulty sleeping Vitamin D deficiency Constipation, slow transit Lipid disorder Hemorrhoids PPD positive Chronic pauciarticular arthritis Surgical History No pertinent past surgical history Family History Father Acute myocardial infarction Mother Parkinson disease Maternal Grandfather No problems noted. Maternal Grandmother No problems noted. Paternal Grandfather No problems noted. Paternal Grandmother No problems noted. Brother No problems noted. Brother No problems noted. Sister No problems noted. Son No problems noted. Daughter No problems noted. Daughter No problems noted. Daughter No problems noted. Social History Housing: House Alcohol intake: never Patient Tobacco Use Status: Never used Tobacco e-Cigarette/Vaping Use: Never Used Second Hand Smoke Exposure: No service: No Current occupational status: employed Sexual orientation: Straight/Heterosexual Gender identity: Female Cognitive needs: No Hearing needs: No Vision needs: No Questionnaire Thrive Questionnaire Date Thrive assessed: 09/24/23 AUDIT C Alcohol Use Questionnaire (AUDIT-C) 1. How often do you have a drink containing alcohol?: Never 3. How often do you have six or more drinks on one occasion?: Never Total Score: 0 Score Reviewed/Action Taken: Yes JANETH-7 AMB Questionnaire JANETH-7 Date JANETH - 7 assessed: 09/24/23 Source: Developed by Drs. Reinaldo Rivera, Carly Perkins, Girish Cage and colleagues, with an educational kesha from [employer]. Review of Systems Const Denies chills and Denies fever(s) ENT Denies epistaxis and Denies nasal discharge Card Denies chest pain Resp Denies chest congestion, Denies cough and Denies hemoptysis GI Denies diarrhea and Denies nausea Skin/Breast Denies rash Neuro Reports no additional complaints Psych Reports no additional complaints Endo Reports no additional complaints Physical exam (Primary Care) Tobacco/Smoking Status: Tobacco use Status Tobacco use date assessed 02/11/24 03/30/24 08:54 Patient Tobacco Use Status Never used Tobacco 03/30/24 08:54 e-Cigarette/Vaping Use Never Used 03/30/24 08:54 Thrive Assessment: Date of Thrive Assessment Date Thrive assessed 09/24/23 03/30/24 08:54 Telehealth Telehealth Telehealth Platform: [facility] Location of provider rendering services: practice address Location of patient: address on file Patient Identification confirmed using: Name, : Yes Telehealth method: video (attempted) Patient verbally consented to treatment: Yes Patient verbally consented to billing insurance company: Yes Patient informed of any privacy concerns related to visit: Yes Minutes spent on Phone/Video with Pt.: 16 Assessment and Plan Assessment & Plan (1) Tired: Code(s): R53.83 - Other fatigue (2) Unable to sleep: Code(s): G47.00 - Insomnia, unspecified Qualifiers: Insomnia type: adjustment Qualified Code(s): F51.02 - Adjustment insomnia (3) Stress at home: Code(s): F43.9 - Reaction to severe stress, unspecified (4) Depression, major, single episode: Code(s): F32.9 - Major depressive disorder, single episode, unspecified Qualifiers: Active/Remission status: currently active Major depression episode severity: moderate Qualified Code(s): F32.1 - Major depressive disorder, single episode, moderate (5) Muscle tension pain: Code(s): M79.10 - Myalgia, unspecified site (6) Tension headache: Code(s): G44.209 - Tension-type headache, unspecified, not intractable (7) Vitamin D deficiency: Code(s): E55.9 - Vitamin D deficiency, unspecified (8) Lipid disorder: Code(s): E78.9 - Disorder of lipoprotein metabolism, unspecified (9) Hemorrhoids: Code(s): K64.9 - Unspecified hemorrhoids Qualifiers: Hemorrhoid type: other Qualified Code(s): K64.8 - Other hemorrhoids Plan Patient is 58 year old female in lot of stress due to sickness of her spend most of her time in hospital with him unable to sleep was c/o of BRISENO, upper back pain Hip pain, which is chronic for the patient also have depression, anxiety, lipid disorder and multiple joint arthritis i prescribed Zolpidem and diclofenic last visit 4 wks ago she felt better was able to sleep 6 hrs but dont have medication any more refill provided lab order placed to be done fasting f/u 3 M Orders: Orders Complete Blood Count Auto Diff Today E55.9 - Vitamin D deficiency, unspecified, E78.9 - Disorder of lipoprotein metabolism, unspecified, F32.1 - Major depressive disorder, single episode, moderate, F43.9 - Reaction to severe stress, unspecified, F51.02 - Adjustment insomnia, G44.209 - Tension-type headache, unspecified, not intractable, K64.9 - Unspecified hemorrhoids, M79.10 - Myalgia, unspecified site, R53.83 - Other fatigue Comprehensive [place]. Panel Fast Today E55.9 - Vitamin D deficiency, unspecified, E78.9 - Disorder of lipoprotein metabolism, unspecified, F32.1 - Major depressive disorder, single episode, moderate, F43.9 - Reaction to severe stress, unspecified, F51.02 - Adjustment insomnia, G44.209 - Tension-type headache, unspecified, not intractable, K64.9 - Unspecified hemorrhoids, M79.10 - Myalgia, unspecified site, R53.83 - Other fatigue Lipid Panel Today E55.9 - Vitamin D deficiency, unspecified, E78.9 - Disorder of lipoprotein metabolism, unspecified, F32.1 - Major depressive disorder, sing le episode, moderate, F43.9 - Reaction to severe stress, unspecified, F51.02 - Adjustment insomnia, G44.209 - Tension-type headache, unspecified, not intractable, K64.9 - Unspecified hemorrhoids, M79.10 - Myalgia, unspecified site, R53.83 - Other fatigue Vitamin D 25-OH (D2 and D3) Today E55.9 - Vitamin D deficiency, unspecified, E78.9 - Disorder of lipoprotein metabolism, unspecified, F32.1 - Major depressive disorder, single episode, moderate, F43.9 - Reaction to severe stress, unspecified, F51.02 - Adjustment insomnia, G44.209 - Tension-type headache, unspecified, not intractable, K64.9 - Unspecified hemorrhoids, M79.10 - Myalgia, unspecified site, R53.83 - Other fatigue Vitamin B12 Today E55.9 - Vitamin D deficiency, unspecified, E78.9 - Disorder of lipoprotein metabolism, unspecified, F32.1 - Major depressive disorder, single episode, moderate, F43.9 - Reaction to severe stress, unspecified, F51.02 - Adjustment insomnia, G44.209 - Tension-type headache, unspecified, not intractable, K64.9 - Unspecified hemorrhoids, M79.10 - Myalgia, unspecified site, R53.83 - Other fatigue TSH reflex Free T4 Today E55.9 - Vitamin D deficiency, unspecified, E78.9 - Disorder of lipoprotein metabolism, unspecified, F32.1 - Major depressive disorder, single episode, moderate, F43.9 - Reaction to severe stress, uns pecified, F51.02 - Adjustment insomnia, G44.209 - Tension-type headache, unspecified, not intractable, K64.9 - Unspecified hemorrhoids, M79.10 - Myalgia, unspecified site, R53.83 - Other fatigue Medications: Changed From diclofenac sodium 75 mg PO BID To diclofenac sodium take it in evening with food for hip pain 50 mg PO ONCE 90 tabs 0RF 90 days Refilled zolpidem 10 mg PO BEDTIME PRN 90 tabs 0RF sleep Coding Level of Care Code Tele Est Pt Level 4 (07718) Diagnoses Tired R53.83 Adjustment insomnia F51.02 Insomnia type: adjustment Stress at home F43.9 Current moderate episode of major depressive disorder without prior episode F32.1 Active/Remission status: currently active Major depression episode severity: moderate Muscle tension pain M79.10 Tension headache G44.209 Vitamin D deficiency E55.9 Lipid disorder E78.9 Other hemorrhoids K64.8 Hemorrhoid type: other
== END 2024-03-30 13:43 | disposition home or self-care (01) ==
LOC: HO.HMGC 08:43
PROVIDERS: PCP Internal Medicine; Visit Provider Internal Medicine
DX: R53.83 Other fatigue (principal); F51.02 Adjustment insomnia; F43.9 Reaction to severe stress, unspecified; F32.1 Major depressive disorder, single episode, moderate; M79.10 Myalgia, unspecified site; G44.209 Tension-type headache, unspecified, not intractable; E55.9 Vitamin D deficiency, unspecified; E78.9 Disorder of lipoprotein metabolism, unspecified; K64.8 Other hemorrhoids
CPT/HCPCS: 99214

== ENCOUNTER 2024-07-14 08:48 | Outpatient (AMB) | payer OTHER, SELFPAY ==
--- NOTE | 2024-07-14 08:49 | MHC.PC.OV ---
Vital Signs 07/14/24 08:50 Height 5 ft 6 in Weight 149 lb 6 oz BMI 24.1 BP 98/64 Blood Pressure Location Lt brachial Position Sitting Pulse 79 Pulse Source Pulse Oximeter Pulse Oximetry (%) 95 Oxygen Delivery Method Room Air Intake Visit Reasons: Abd discomfort x 2 weeks Allergies Penicillins [PENICILLINS] Allergy (Intermediate, Verified 07/14/24 09:02) SWELLING penicillin V Allergy (Unknown, Verified 07/14/24 09:02) swelling Medication List - Last Reconciled 07/14/24 by Naldo Canela MD diclofenac sodium 50 mg PO ONCE 90 days hydroxychloroquine 200 mg PO BID zolpidem 10 mg PO BEDTIME PRN Tobacco use date assessed: 07/14/24 Dental Screening Dental Screen Date: 07/14/24 Did you have a dental visit in the last 12 months?: Yes Did you have a dental problem in the last 6 months where you did not have access to dental care?: No Was dental information given to patient?: Patient has dentist HPI Abd discomfort x 2 weeks HPI Details Patient is 59-year-old female Who recently lost her , last day she lost her son Patient is going through grieving. , having difficulty sleeping at night Last time when she was struggling with her 's health she was having similar problem I prescribed zolpidem but her insurance never covered it Patient says that she has a new insurance now and would like to take something to sleep zolpidem 5 mg 30 tablets sent to be taken as needed at night Side effect reviewed with the patient She also is complaining of right lower quadrant pain for the past 1 week Patient says that the pain is slightly worse On examination she does not have any guarding or rebound but there is a tenderness with deep pressure Patient still has her appendix I am ordering stat CT scan as patient has declined to go to emergency room Patient was notified that there could be a possibility of inflammation of appendix If CT scan is not covered for today She need to go to emergency room especially if the pain got worse, she understand She will also meet with our behavior health coordinator so we can help her set up with a therapist. Follow-up 2 weeks [facility] Medical History Cervical pain (neck) Breast screening Right lumbar radiculitis Lumbar pain Difficulty sleeping Vitamin D deficiency Constipation, slow transit Lipid disorder Hemorrhoids PPD positive Chronic pauciarticular arthritis Surgical History No pertinent past surgical history Family History Father Acute myocardial infarction Mother Parkinson disease Maternal Grandfather No problems noted. Maternal Grandmother No problems noted. Paternal Grandfather No problems noted. Paternal Grandmother No problems noted. Brother No problems noted. Brother No problems noted. Sister No problems noted. Son No problems noted. Daughter No problems noted. Daughter No problems noted. Daughter No problems noted. Social History Housing: House Alcohol intake: never Patient Tobacco Use Status: Never used Tobacco e-Cigarette/Vaping Use: Never Used Second Hand Smoke Exposure: No service: No Current occupational status: employed Sexual orientation: Straight/Heterosexual Gender identity: Female Cognitive needs: No Hearing needs: No Vision needs: No Questionnaire Thrive Questionnaire Date Thrive assessed: 07/14/24 I am a: Patient What is your living situation today?: I have a steady place to live Within the past 12 months, did the food you bought not last and you didn't have the money to get more?: Never true Within the past 12 months, did you worry whether your food would run out before you got money to buy more?: Never true Do you have trouble paying for medicines?: No Do you have trouble getting transportation to medical appointments?: No Do you have trouble paying your heating and electricity bill?: No Do you have trouble taking care of your child, family member or friend?: No Do you have trouble with day-to-day activities such as bathing, preparing meals, shopping, managing finances, etc.?: No Are you currently unemployed and looking for a job?: No Are you interested in more education?: No Please select the resources that you would like help with: None Currently or been in a relationship where the following occur: I choose not to answer THRIVE Score: 0 AUDIT C Alcohol Use Questionnaire (AUDIT-C) 1. How often do you have a drink containing alcohol?: Never 3. How often do you have six or more drinks on one occasion?: Never Total Score: 0 Score Reviewed/Action Taken: Yes JANETH-7 AMB Questionnaire JANETH-7 Date JANETH - 7 assessed: 07/14/24 Feeling nervous, anxious, or on edge: 0 = Not at all Not being able to stop or control worryin = Not at all Worrying too much about different things: 0 = Not at all Trouble relaxin = Not at all Being so restless that it is hard to sit still: 0 = Not at all Becoming easily annoyed or irritable: 0 = Not at all Feeling afraid as if something awful might happen: 0 = Not at all Total JANETH-7 score (0-4 normal; 5-9 mild; 10-14 moderate; 15-21 severe): 0 Source: Developed by Drs. Reinaldo Rivera, Carly Perkins, Girish Cage and colleagues, with an educational kesha from [employer]. JANETH-7 Assessment Billing JANETH-7 Assessment Tool: JANETH-7 Assessment 51898 Review of Systems Const Denies chills and Denies fever(s) ENT Denies epistaxis and Denies nasal discharge Card Denies chest pain Resp Denies chest congestion, Denies cough and Denies hemoptysis GI Denies diarrhea and Denies nausea Skin/Breast Denies rash Neuro Reports no additional complaints Psych Reports no additional complaints Endo Reports no additional complaints Physical exam (Primary Care) Vital Signs: Last Vital Signs Pulse 79 07/14/24 08:50 BP 98/64 07/14/24 08:50 Pulse Ox 95 07/14/24 08:50 Oxygen Delivery Method Room Air 07/14/24 08:50 BMI result Body Mass Index 24.1 Tobacco/Smoking Status: Tobacco use Status Tobacco use date assessed 07/14/24 07/14/24 09:03 Patient Tobacco Use Status Never used Tobacco 07/14/24 08:57 e-Cigarette/Vaping Use Never Used 07/14/24 08:57 Thrive Assessment: Date of Thrive Assessment Date Thrive assessed 07/14/24 07/14/24 09:03 Currently or been in a relationship where the following occur: I choose not to answer Const General: cooperative, comfortable and no acute distress Orientation/consciousness: patient oriented x3 HENMT Head: Yes normocephalic Eyes General: appearance normal, both eyes and all related structures Neck Neck: Yes supple Resp Effort & Inspection: normal respiratory effort, no cough and no stridor Cardio Rhythm: regular rhythm Heart sounds: S1 normal heart sound present and S2 normal heart sound present GI Abdomen image: 1. Pain with deep pressure no guarding no rebound bowel sounds positive Skin General skin exam: turgor normal Neuro General: patient oriented x3, tone normal and moves all extremities Extrem Right lower extremity: no edema Left lower extremity: no edema Assessment and Plan Assessment & Plan (1) Right lower quadrant pain: Code(s): R10.31 - Right lower quadrant pain (2) Grieving: Code(s): F43.21 - Adjustment disorder with depressed mood (3) Unable to sleep: Code(s): G47.00 - Insomnia, unspecified Qualifiers: Insomnia type: adjustment Qualified Code(s): F51.02 - Adjustment insomnia Plan Patient is 59-year-old female Who recently lost her , last day she lost her son Patient is going through grieving. , having difficulty sleeping at night Last time when she was struggling with her 's health she was having similar problem I prescribed zolpidem but her insurance never covered it Patient says that she has a new insurance now and would like to take something to sleep zolpidem 5 mg 30 tablets sent to be taken as needed at night Side effect reviewed with the patient She also is complaining of right lower quadrant pain for the past 1 week Patient says that the pain is slightly worse On examination she does not have any guarding or rebound but there is a tenderness with deep pressure Patient still has her appendix I am ordering stat CT scan as patient has declined to go to emergency room Patient was notified that there could be a possibility of inflammation of appendix If CT scan is not covered for today She need to go to emergency room especially if the pain got worse, she understand She will also meet with our behavior health coordinator so we can help her set up with a therapist. Follow-up 2 weeks Orders: Orders CT abdomen pelvis wo IV con Today R10.31 - Right lower quadrant pain Medications: Changed From zolpidem 10 mg PO BEDTIME PRN 90 tabs 0RF sleep To zolpidem 5 mg PO BEDTIME PRN 30 tabs 0RF sleep Discontinued diclofenac sodium take it in evening with food for hip pain Discontinued Reason: Doctor's Order 50 mg PO ONCE 90 days 90 tabs 0RF Coding Level of Care Code Est Pt Level 4 (93154) Diagnoses Right lower quadrant pain R10.31 Grieving F43.21 Adjustment insomnia F51.02 Insomnia type: adjustment Additional Codes JANETH-7 Assessment Billing - JANETH-7 Assessment Tool: JANETH-7 Assessment [id number] ([id number])
[2024-07-14 08:50] VITALS: BP 98/64; PULSE 79; O2SAT 95; BMI 24.1
== END 2024-07-14 09:34 | disposition home or self-care (01) ==
PROVIDERS: PCP Internal Medicine; Visit Provider Internal Medicine
DX: R10.31 Right lower quadrant pain (principal); F43.21 Adjustment disorder with depressed mood; F51.02 Adjustment insomnia
CPT/HCPCS: 99214

== ENCOUNTER 2024-07-17 05:59 | Outpatient (REF) | payer OTHER, SELFPAY ==
--- NOTE | ~2024-07-17 | CT_ITS ---
EXAMINATION: CT ABDOMEN AND PELVIS WITH CONTRAST CLINICAL INFORMATION: Right lower quadrant pain. COMPARISON: None available. TECHNIQUE: Multidetector volumetric images were obtained from the superior aspect of the liver through the pubic symphysis following administration 85 mL of Omnipaque 350 intravenous contrast. Sagittal and coronal reformatted images were obtained on the technologist's workstation. Oral contrast: No This CT examination was performed using dose optimization techniques as appropriate, variously including the following: *Automated exposure control *Adjustment of mA and/or kV according to patient size (this includes techniques or standardized protocols for targeted exams where dose is matched to indication/reason for exam; i.e. extremities or head) *Use of iterative reconstruction technique DLP: 324.5 mGy-cm FINDINGS: LUNG BASES: Calcified granuloma in the right lower lobe. No focal consolidation or pleural effusion. LIVER, GALLBLADDER, AND BILIARY TREE: The liver is normal in size, shape, and attenuation. No focal hepatic lesion or biliary ductal dilatation is present. The gallbladder is unremarkable with no evidence of radiopaque gallstones, gallbladder wall thickening, or obvious pericholecystic inflammatory changes. PANCREAS: Unremarkable. SPLEEN: Unremarkable. ADRENAL GLANDS: Unremarkable. KIDNEYS AND URETERS: Asymmetric dilatation of the right renal pelvis, AP diameter 2.4 cm with narrowing at the level of the ureteropelvic pelvic junction. Single nonobstructive 0.6 cm calculus in the interpolar right kidney measuring 1115 Hounsfield units, located at 7.5 cm from the skin surface of the posterior axillary line. Otherwise, normal kidneys. BLADDER: Unremarkable. GASTROINTESTINAL TRACT: The stomach and small bowel are nondilated. Oral contrast reaches the rectum. No evidence of bowel obstruction. Equivocal minimal wall thickening of the distal ileum and terminal ileum, suboptimally assessed due to incomplete distention, without significant associated inflammatory changes. A few colonic diverticuli without significant pericolonic inflammatory changes. ABDOMINAL WALL: No significant hernia is appreciated. LYMPH NODES: No lymphadenopathy. VASCULAR: Normal caliber of the abdominal aorta. PELVIC VISCERA: Unremarkable. OSSEOUS STRUCTURES: Grade 1 anterolisthesis of L4 on L5. Degenerative changes of the spine. No acute or aggressive appearing osseous findings. CT/CT abdomen pelvis w IV con IMPRESSION: 1. Asymmetric dilatation of the right renal pelvis with narrowing at the level of the ureteropelvic junction suggesting a degree of UPJ obstruction; recommend urology referral and further evaluation with urogram as warranted. 2. Nonobstructive 0.6 cm calculus in the interpolar right kidney. 3. Equivocal minimal wall thickening of the distal ileum and terminal ileum that could be seen with enteritis/inflammatory bowel disease, though evaluation is limited due to incomplete luminal distention. No significant associated inflammatory changes. Recommend clinical correlation and referral to GI specialist as clinically warranted. 4. Mild colonic diverticulosis without evidence of acute diverticulitis. Electronically signed by: Damari Jameson MD 07/17/2024 12:09 PM EDT
[2024-07-17] MEDS: iohexoL 350 MG/ML 100 ML INFUS..BTL 85 ML IV (09:08)
[2024-07-18 08:47] LABS: Creatinine POC 0.8 mg/dL (0.5-1.4); GFR POC > 60
== END 2024-07-17 06:00 | disposition home or self-care (01) ==
LOC: HO.CT 05:59
PROVIDERS: PCP Internal Medicine; Visit Provider Internal Medicine
DX: R10.31 Right lower quadrant pain (principal)
CPT/HCPCS: 74177; 82565; Q9967

== ENCOUNTER 2024-07-20 08:19 | Outpatient (AMB) | payer OTHER, SELFPAY ==
--- NOTE | 2024-07-20 08:20 | A.OFFPC_ITS ---
Intake Visit Reasons: Review CT scan Allergies Penicillins [PENICILLINS] Allergy (Intermediate, Verified 07/20/24 08:20) SWELLING penicillin V Allergy (Unknown, Verified 07/20/24 08:20) swelling Medication List - Last Reconciled 07/21/24 by Naldo Canela MD hydroxychloroquine 200 mg PO BID zolpidem 5 mg PO BEDTIME PRN Tobacco use date assessed: 07/14/24 Dental Screening Dental Screen Date: 07/14/[address] scan HPI Details Patient is 59-year-old female this is a telemedicine video conference Patient was evaluated few days ago when she complained of pain lower abdomen On examination she had tenderness right lower quadrant We did a stat CT scan which showed 1. Asymmetric dilatation of the right r enal pelvis with narrowing at the level of the ureteropelvic junction suggesting a degree of UPJ obstruction; recommend urology referral and further evaluation with urogram as warranted. 2. Nonobstructive 0.6 cm calculus in th e interpolar right kidney. 3. Equivocal minimal wall thickening of the distal ileum and terminal ileum that could be seen with enteritis/inflammatory bowel disease, though evaluation is limited due to incomplete luminal distention. No significant associated inflammatory changes. 4. Mild colonic diverticulosis without evidence of acute diverticulitis. Her symptoms have not worsened She has no pain or blood in her bowels, bowel movements are regular No nausea no vomiting I have placed a referral to Urology for further evaluation regarding UPJ obstruction CT scan report explained to patient. [facility] Medical History Cervical pain (neck) Breast screening Right lumbar radiculitis Lumbar pain Difficulty sleeping Vitamin D deficiency Constipation, slow transit Lipid disorder Hemorrhoids PPD positive Chronic pauciarticular arthritis Surgical History No pertinent past surgical history Family History Father Acute myocardial infarction Mother Parkinson disease Maternal Grandfather No problems noted. Maternal Grandmother No problems noted. Paternal Grandfather No problems noted. Paternal Grandmother No problems noted. Brother No problems noted. Brother No problems noted. Sister No problems noted. Son No problems noted. Daughter No problems noted. Daughter No problems noted. Daughter No problems noted. Social History Housing: House Alcohol intake: never Patient Tobacco Use Status: Never used Tobacco e-Cigarette/Vaping Use: Never Used Second Hand Smoke Exposure: No service: No Current occupational status: employed Sexual orientation: Straight/Heterosexual Gender identity: Female Cognitive needs: No Hearing needs: No Vision needs: No Questionnaire Thrive Questionnaire Date Thrive assessed: 07/14/24 JANETH-7 AMB Questionnaire JANETH-7 Date JANETH - 7 assessed: 07/14/24 Source: Developed by Drs. Reinaldo Rivera, Carly Perkins, Girish Cage and colleagues, with an educational kesha from [employer]. Review of Systems Const Denies chills and Denies fever(s) ENT Denies epistaxis and Denies nasal discharge Card Denies chest pain Resp Denies chest congestion, Denies cough and Denies hemoptysis GI Denies diarrhea and Denies nausea Skin/Breast Denies rash Neuro Reports no additional complaints Psych Reports no additional complaints Endo Reports no additional complaints Physical exam (Primary Care) Tobacco/Smoking Status: Tobacco use Status Tobacco use date assessed 07/14/24 07/20/24 08:20 Patient Tobacco Use Status Never used Tobacco 07/20/24 08:20 e-Cigarette/Vaping Use Never Used 07/20/24 08:20 Thrive Assessment: Date of Thrive Assessment Date Thrive assessed 07/14/24 07/20/24 08:20 Telehealth Telehealth Telehealth Platform: Telephone Location of provider rendering services: practice address Location of patient: address on file Patient Identification confirmed using: Name, : Yes Telehealth method: video Patient verbally consented to treatment: Yes Patient verbally consented to billing insurance company: Yes Patient informed of any privacy concerns related to visit: Yes Minutes spent on Phone/Video with Pt.: 14 Assessment and Plan Assessment & Plan (1) UPJ (ureteropelvic junction) obstruction: Code(s): N13.5 - Crossing vessel and stricture of ureter without hydronephrosis (2) Right lower quadrant pain: Code(s): R10.31 - Right lower quadrant pain Plan Patient is 59-year-old female this is a telemedicine video conference Patient was evaluated few days ago when she complained of pain lower abdomen On examination she had tenderness right lower quadrant We did a stat CT scan which showed 1. Asymmetric dilatation of the right renal pelvis with narrowing at the level of the ureteropelvic junction suggesting a degree of UPJ obstruction; recommend urology referral and further evaluation with urogram as warranted. 2. Nonobstructive 0.6 cm calculus in the interpolar right kidney. 3. Equivocal minimal wall thickening of the distal ileum and terminal ileum that could be seen with enteritis/inflammatory bowel disease, though evaluation is limited due to incomplete luminal distention. No significant associated inflammatory changes. 4. Mild colonic diverticulosis without evidence of acute diverticulitis. Her symptoms have not worsened She has no pain or blood in her bowels, bowel movements are regular No nausea no vomiting I have placed a referral to Urology for further evaluation regarding UPJ obstruction CT scan report explained to patient. Orders: Referrals Urology Referral N13.5 - Crossing vessel and stricture of ureter without hydronephrosis Coding Level of Care Code Tele Est Pt Level 3 (29026) Diagnoses UPJ (ureteropelvic junction) obstruction N13.5 Right lower quadrant pain R10.31
== END 2024-07-20 09:04 | disposition home or self-care (01) ==
LOC: HO.HMGC 08:19
PROVIDERS: PCP Internal Medicine; Visit Provider Internal Medicine
DX: N13.5 Crossing vessel and stricture of ureter without hydronephrosis (principal); R10.31 Right lower quadrant pain
CPT/HCPCS: 99213

== ENCOUNTER 2024-07-25 13:11 | Outpatient (AMB) | payer OTHER, SELFPAY ==
--- NOTE | 2024-07-25 13:18 | A.OFFPC_ITS ---
Vital Signs 07/25/24 13:19 Height 5 ft 6 in Weight 150 lb 6 oz BMI 24.3 BP 112/66 Blood Pressure Location Rt brachial Pulse 77 Pulse Source Pulse Oximeter Pulse Oximetry (%) 98 Oxygen Delivery Method Room Air Intake Visit Reasons: 2 week follow up Allergies Penicillins [PENICILLINS] Allergy (Intermediate, Verified 07/25/24 13:21) SWELLING penicillin V Allergy (Unknown, Verified 07/25/24 13:21) swelling Medication List - Last Reconciled 07/25/24 by Naldo Canela MD hydroxychloroquine 200 mg PO BID Tobacco use date assessed: 07/25/24 Dental Screening Dental Screen Date: 07/25/24 Did you have a dental visit in the last 12 months?: Yes Did you have a dental problem in the last 6 months where you did not have access to dental care?: No Was dental information given to patient?: Patient has dentist HPI 2 week follow up HPI Details Patient has appointment coming up with urologist September 05 Meanwhile right lower quadrant pain continues off and on She does not have any pain today but yesterday she had pain She was advised to continue pushing more fluids Patient also did not had colonoscopy, I have placed a referral for her to see Gastroenterology 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 to 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 as she does not had her ID with her I have cancel that as she is sleeping better with melatonin She is already on hydrochloroquine through Rheumatology for arthritis Patient is complaining of muscle spasm at night which is keeping her up I have added cyclobenzaprine 10 mg tablet she may take half or 4 at night as needed PFSH Medical History Cervical pain (neck) Breast screening Right lumbar radiculitis Lumbar pain Difficulty sleeping Vitamin D deficiency Constipation, slow transit Lipid disorder Hemorrhoids PPD positive Chronic pauciarticular arthritis Surgical History No pertinent past surgical history Family History Father Acute myocardial infarction Mother Parkinson disease Maternal Grandfather No problems noted. Maternal Grandmother No problems noted. Paternal Grandfather No problems noted. Paternal Grandmother No problems noted. Brother No problems noted. Brother No problems noted. Sister No problems noted. Son No problems noted. Daughter No problems noted. Daughter No problems noted. Daughter No problems noted. Social History Housing: House Alcohol intake: never Patient Tobacco Use Status: Never used Tobacco e-Cigarette/Vaping Use: Never Used Second Hand Smoke Exposure: No service: No Current occupational status: employed Sexual orientation: Straight/Heterosexual Gender identity: Female Cognitive needs: No Hearing needs: No Vision needs: No Questionnaire PHQ-9 Over the last 2 weeks, how often have you been bothered by any of the following problems? 1. Little interest or pleasure in doing things: not at all 2. Feeling down, depressed, or hopeless: not at all 3. Trouble falling or staying asleep, or sleeping too much: not at all 4. Feeling tired or having little energy: not at all 5. Poor appetite or overeating: not at all 6. Feeling bad about yourself - or that you are a failure or have let yourself or your family down: not at all 7. Trouble concentrating on things, such as reading the newspaper or watching television: not at all 8. Moving or speaking so slowly that other people could have noticed. Or the opposite - being so fidgety or restless that you have been moving around a lot more than usual: not at all 9. Thoughts that you would be better off or of hurting yourself in some way: not at all Total score: 0 Depression Screening Interpretation: Negative Depression Screening Done: Yes 42363 - PHQ-9 Billing: Yes Source: Developed by Drs. Reinaldo Rivera, Carly Perkins, Girish Cage and colleagues, with an educational kesha from [employer]. Thrive Questionnaire Date Thrive assessed: 07/25/24 I am a: Patient What is your living situation today?: I have a steady place to live Within the past 12 months, did the food you bought not last and you didn't have the money to get more?: Never true Within the past 12 months, did you worry whether your food would run out before you got money to buy more?: Never true Do you have trouble paying for medicines?: No Do you have trouble getting transportation to medical appointments?: No Do you have trouble paying your heating and electricity bill?: No Do you have trouble taking care of your child, family member or friend?: No Do you have trouble with day-to-day activities such as bathing, preparing meals, shopping, managing finances, etc.?: No Are you currently unemployed and looking for a job?: No Are you interested in more education?: No Please select the resources that you would like help with: None Currently or been in a relationship where the following occur: I choose not to answer THRIVE Score: 0 AUDIT C Alcohol Use Questionnaire (AUDIT-C) 1. How often do you have a drink containing alcohol?: Never 3. How often do you have six or more drinks on one occasion?: Never Total Score: 0 Score Reviewed/Action Taken: Yes JANETH-7 AMB Questionnaire JANETH-7 Date JANETH - 7 assessed: 07/25/24 Feeling nervous, anxious, or on edge: 0 = Not at all Not being able to stop or control worryin = Not at all Worrying too much about different things: 0 = Not at all Trouble relaxin = Not at all Being so restless that it is hard to sit still: 0 = Not at all Becoming easily annoyed or irritable: 0 = Not at all Feeling afraid as if something awful might happen: 0 = Not at all Total JANETH-7 score (0-4 normal; 5-9 mild; 10-14 moderate; 15-21 severe): 0 Source: Developed by Drs. Reinaldo Rivera, Carly Perkins, Girish Cage and colleagues, with an educational kesha from [employer]. JANETH-7 Assessment Billing JANETH-7 Assessment Tool: JANETH-7 Assessment 13134 Review of Systems Const Denies chills and Denies fever(s) ENT Denies epistaxis and Denies nasal discharge Card Denies chest pain Resp Denies chest congestion, Denies cough and Denies hemoptysis GI Denies diarrhea and Denies nausea Skin/Breast Denies rash Neuro Reports no additional complaints Psych Reports no additional complaints Endo Reports no additional complaints Physical exam (Primary Care) Vital Signs: Last Vital Signs Pulse 77 07/25/24 13:19 BP 112/66 07/25/24 13:19 Pulse Ox 98 07/25/24 13:19 Oxygen Delivery Method Room Air 07/25/24 13:19 BMI result Body Mass Index 24.3 Tobacco/Smoking Status: Tobacco use Status Tobacco use date assessed 07/25/24 07/25/24 13:21 Patient Tobacco Use Status Never used Tobacco 07/25/24 13:21 e-Cigarette/Vaping Use Never Used 07/25/24 13:21 PHQ-9: PHQ-9 Score PHQ-9: Total score 0 07/25/24 13:21 Depression Screening Interpretation: Negative Thrive Assessment: Date of Thrive Assessment Date Thrive assessed 07/25/24 07/25/24 13:21 Currently or been in a relationship where the following occur: I choose not to answer Const General: cooperative, comfortable and no acute distress Orientation/consciousness: patient oriented x3 HENMT Head: Yes normocephalic Eyes General: appearance normal, both eyes and all related structures Neck Neck: Yes supple Resp Effort & Inspection: normal respiratory effort, no cough and no stridor Cardio Rhythm: regular rhythm Heart sounds: S1 normal heart sound present and S2 normal heart sound present Skin General skin exam: turgor normal Neuro General: patient oriented x3, tone normal and moves all extremities Extrem Right lower extremity: no edema Left lower extremity: no edema Assessment and Plan Assessment & Plan (1) Muscle cramping: Code(s): R25.2 - Cramp and spasm (2) UPJ (ureteropelvic junction) obstruction: Code(s): N13.5 - Crossing vessel and stricture of ureter without hydronephrosis (3) Colon cancer screening: Code(s): Z12.11 - Encounter for screening for malignant neoplasm of colon Plan Patient has appointment coming up with urologist September 05 Meanwhile right lower quadrant pain continues off and on She does not have any pain today but yesterday she had pain She was advised to continue pushing more fluids Patient also did not had colonoscopy, I have placed a referral for her to see Gastroenterology 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 to 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 as she does not had her ID with her I have cancel that as she is sleeping better with melatonin She is already on hydrochloroquine through Rheumatology for arthritis Patient is complaining of muscle spasm at night which is keeping her up I have added cyclobenzaprine 10 mg tablet she may take half or 4 at night as needed Orders: Referrals Gastroenterology Referral Z12.11 - Encounter for screening for malignant neoplasm of colon Medications: New cyclobenzaprine Take half tablet or full tablet at night for muscle cramping 10 mg PO BEDTIME PRN 30 tabs 0RF muscle spasm Coding Level of Care Code Est Pt Level 3 (55433) Diagnoses Muscle cramping R25.2 UPJ (ureteropelvic junction) obstruction N13.5 Colon cancer screening Z12.11 Additional Codes JANETH-7 Assessment Billing - JANETH-7 Assessment Tool: JANETH-7 Assessment 03923 ([id number])
[2024-07-25 13:19] VITALS: BP 112/66; PULSE 77; O2SAT 98; BMI 24.3
== END 2024-07-25 13:58 | disposition home or self-care (01) ==
PROVIDERS: PCP Internal Medicine; Visit Provider Internal Medicine
DX: R25.2 Cramp and spasm (principal); N13.5 Crossing vessel and stricture of ureter without hydronephrosis; Z12.11 Encounter for screening for malignant neoplasm of colon

== ENCOUNTER → 2024-07-25 13:11 | Outpatient (BNVA) | payer OTHER, SELFPAY | PROVIDERS: PCP Internal Medicine; Visit Provider Internal Medicine | DX: R25.2 Cramp and spasm (principal); N13.5 Crossing vessel and stricture of ureter without hydronephrosis | CPT/HCPCS: 96127; 99212 ==

== ENCOUNTER 2024-09-05 09:17 | Outpatient (AMB) | payer OTHER, SELFPAY ==
--- NOTE | 2024-09-05 09:19 | A.OFFVIS_ITS ---
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 She is a patient of Dr. Canela. She is seen for the following urologic conditions - nephrolithiasis - question of UPJ stone Plan Lasix renogram to review kidney Creatinine normal Nephrolithiasis Imaging with small stones Hydronephrosis Imaging - 08/01 CT Scan - Asymmetric dilatation of the right renal pelvis, AP diameter 2.4 cm with narrowing at the level of the ureteropelvic pelvic junction. 6 mm right renal pole PFSH Medical History Cervical pain (neck) Breast screening Right lumbar radiculitis Lumbar pain Difficulty sleeping Vitamin D deficiency Constipation, slow transit Lipid disorder Hemorrhoids PPD positive Chronic pauciarticular arthritis Surgical History No pertinent past surgical history Family History Father Acute myocardial infarction Mother Parkinson disease Maternal Grandfather No problems noted. Maternal Grandmother No problems noted. Paternal Grandfather No problems noted. Paternal Grandmother No problems noted. Brother No problems noted. Brother No problems noted. Sister No problems noted. Son No problems noted. Daughter No problems noted. Daughter No problems noted. Daughter No problems noted. Social History Housing: House Alcohol intake: never Patient Tobacco Use Status: Never used Tobacco e-Cigarette/Vaping Use: Never Used Second Hand Smoke Exposure: No service: No Current occupational status: employed Sexual orientation: Straight/Heterosexual Gender identity: Female Cognitive needs: No Hearing needs: No Vision needs: No Review of Systems Const Denies chills and Denies fever(s) Card Reports no additional complaints and Denies syncope Resp Denies cough GI Denies abdominal pain and Denies heartburn Reports as per HPI and Denies change in libido Neuro Denies syncope Psych Denies change in libido Endo Denies change in libido Physical Exam Const General: cooperative, healthy appearing, comfortable and no acute distress Orientation/consciousness: patient oriented x3 HEENT Face and sinus: Yes normal facial exam Mouth: moist mucous membranes Neck Neck: Yes normal visual inspection, Yes full ROM and Yes trachea midline Chest Chest palpation & inspection: normal inspection of the chest Resp Effort & Inspection: normal respiratory effort, able to speak in complete sentences and no respiratory distress GI Inspection: Yes normal to inspection Back/Spine/Pelvis Cervical Spine: normal cervical lordosis Thoracic/Lumbar Spine: thoracic and lumbar spine normal to inspection Skin General skin exam: no rashes or lesions noted Neuro General: patient oriented x3, gait normal, tone normal and moves all extremities Extrem General: Yes normal to inspection and Yes capillary refill normal Assessment & Plan Assessment & Plan (1) UPJ (ureteropelvic junction) obstruction: Code(s): N13.5 - Crossing vessel and stricture of ureter without hydronephrosis Category: Medical Plan Imaging, follow-up Orders: Orders NM renal flow w pharm int 09/05/24 N13.30 - Unspecified hydronephrosis, N13.5 - Crossing vessel and stricture of ureter without hydronephrosis Patient Instructions: Imaging studies, laboratory and physical exam results were discussed and reviewed in detail. No major barriers to patient understanding were identified. An opportunity to ask questions regarding the treatment plan was provided. All questions were answered. The patient expressed understanding and agreement with the above treatment plan. The patient is aware they should contact our office by phone for worsening of their current condition or the appearance of new urologic symptoms. Compliance is encouraged with any medications and followup testing that is ordered. It is a privilege to participate in the urologic care of your patient. If you have any questions or concerns regarding treatment for the above conditions, or other urologic issues, please do not hesitate to contact me. The office telephone contact is [phone]. This note is constructed using voice recognition software. While every effort has been made to ensure accuracy structural rigger errors may have been included. Yours sincerely, Dr Sean Patterson MD, [facility] - Urology Providers of Expert, Compassionate Care for the Genitourinary System Coding Level of Care Code New Pt Level 3 (91688) Diagnoses UPJ (ureteropelvic junction) obstruction N13.5
== END 2024-09-05 09:44 | disposition home or self-care (01) ==
LOC: HO.HUSH 09:17
PROVIDERS: PCP Internal Medicine; Visit Provider Urology
DX: N13.5 Crossing vessel and stricture of ureter without hydronephrosis (principal)
CPT/HCPCS: 99203

== ENCOUNTER → 2024-09-05 09:17 | Outpatient (BNVA) | payer OTHER, SELFPAY | PROVIDERS: PCP Internal Medicine; Visit Provider Urology | DX: N13.5 Crossing vessel and stricture of ureter without hydronephrosis (principal); N13.30 Unspecified hydronephrosis; Z87.442 Personal history of urinary calculi | CPT/HCPCS: 99202 ==

== ENCOUNTER → 2024-10-10 10:46 | Outpatient (REF) | payer OTHER, SELFPAY ==
--- NOTE | ~2024-10-10 | NM_ITS ---
EXAMINATION: NM RENOGRAM WITH LASIX CLINICAL INFORMATION: 59-year-old female with unspecified right-sided hydronephrosis seen on CT scan of the abdomen and pelvis done on 07/17/2024 for evaluation of right lower quadrant abdominal pain. COMPARISON: CT of the abdomen and pelvis done on 07/17/2024. TECHNIQUE: Dynamic renal scintigraphy was performed after intravenous administration of 10 mCi Tc-99m Technetium 99m DTPA 33 mg of furosemide was administered at 30 minutes and continued dynamic imaging of the abdomen/pelvis was obtained for a total of 60 minutes. FINDINGS: Left kidney 53.9% and the right kidney 46.1% of total renal uptake. Left Kidney: Normal perfusion. Progressive cortical uptake followed by excretion into the normal appearing pelvicalyceal system and progressive washout of radiotracer before as well as after administration of Lasix is noted. No meaningful T 1/2 of Lasix could be calculated because of significant washout prior to administration of Lasix. Right Kidney: Normal perfusion. Progressive cortical uptake followed by excretion into the prominent right renal pelvis and progressive washout of radiotracer before as well as after administration of Lasix is noted. No meaningful T 1/2 of Lasix could not be calculated because of significant washout prior to administration of Lasix. Other: Post void image shows asymmetric prominent right renal pelvis otherwise unremarkable. No definite evidence of any reflux. Mild retained radiotracer is noted within the bladder. NM/NM renal flow w pharm int IMPRESSION: 1. Differential renal function: Left 53.9%, Right 46.1%. 2. Left kidney has non-obstructive parameters after diuresis. 3. Right kidney has non-obstructive parameters after diuresis. Electronically signed by: Nirmala Mercado MD 10/15/2024 04:35 PM [facility]
[2024-10-10] MEDS: Furosemide 40 MG/4 ML VIAL 33 MG IVPUSH (15:03)
== END ==
LOC: HO.NUCMED 10:46
PROVIDERS: PCP Internal Medicine; Visit Provider Urology
DX: N13.30 Unspecified hydronephrosis (principal); N13.5 Crossing vessel and stricture of ureter without hydronephrosis
CPT/HCPCS: 78708; A9539; J1940

== ENCOUNTER 2024-10-17 12:55 | Outpatient (AMB) | payer OTHER, SELFPAY ==
--- NOTE | 2024-10-17 12:04 | MHC.OFFVIS ---
Intake Visit Reasons: CT scan follow up Intake Note: Patient is present for CT SCAN F/U Urology Medication:NONE Antibiotic Allergy:PENICILLINS Blood Thinner:NONE Regulatory Auditor Required: No Allergies Penicillins [PENICILLINS] Allergy (Intermediate, Verified 10/17/24 12:04) SWELLING penicillin V Allergy (Unknown, Verified 10/17/24 12:04) swelling HPI Comments Details: Gisele is a South female. She is a patient of Dr. Canela. She is seen for the following urologic conditions - nephrolithiasis - question of UPJ stone Telemedicine Evaluation 15 min Consultation [facility] Video Follow-up imaging Lasix renogram indicates normal function with no evidence of UPJ obstruction Follow-up 12 months for nephrolithiasis with nurse-practitioner Nephrolithiasis Imaging with small stones Hydronephrosis Imaging - 08/01 CT Scan - Asymmetric dilatation of the right renal pelvis, AP diameter 2.4 cm with narrowing at the level of the ureteropelvic pelvic junction. 6 mm right renal pole - 10/31 Lasix renogram - 1. Differential renal function: Left 53.9%, Right 46.1%., 2. Left kidney has non-obstructive parameters after diuresis, 3. Right kidney has non-obstructive parameters after diuresis PFSH Medical History Cervical pain (neck) Breast screening Right lumbar radiculitis Lumbar pain Difficulty sleeping Vitamin D deficiency Constipation, slow transit Lipid disorder Hemorrhoids PPD positive Chronic pauciarticular arthritis Surgical History No pertinent past surgical history Family History Father Acute myocardial infarction Mother Parkinson disease Maternal Grandfather No problems noted. Maternal Grandmother No problems noted. Paternal Grandfather No problems noted. Paternal Grandmother No problems noted. Brother No problems noted. Brother No problems noted. Sister No problems noted. Son No problems noted. Daughter No problems noted. Daughter No problems noted. Daughter No problems noted. Social History Housing: House Alcohol intake: never Patient Tobacco Use Status: Never used Tobacco e-Cigarette/Vaping Use: Never Used Second Hand Smoke Exposure: No service: No Current occupational status: employed Sexual orientation: Straight/Heterosexual Gender identity: Female Cognitive needs: No Hearing needs: No Vision needs: No Review of Systems Const All systems reviewed & are unremarkable except as noted in HPI and below Reports no additional complaints Resp Reports no additional complaints GI Reports no additional complaints Reports as per HPI Musc Reports no additional complaints Physical Exam Telemedicine evaluation Appropriate responses Regular breathing rate and rhythm HEENT Head: Yes normal to inspection Ears: hearing grossly normal bilaterally Eyes General: appearance normal, both eyes and all related structures Neck Neck: Yes normal visual inspection Chest Chest palpation & inspection: normal inspection of the chest Resp Effort & Inspection: normal respiratory effort and able to speak in complete sentences Telehealth Telehealth Telehealth Platform: [facility] Location of provider rendering services: practice address Location of patient: address on file Patient Identification confirmed using: Name, : Yes Telehealth method: video Patient verbally consented to treatment: Yes Patient verbally consented to billing insurance company: Yes Patient informed of any privacy concerns related to visit: Yes Minutes spent on Phone/Video with Pt.: 15 Assessment & Plan Assessment & Plan (1) UPJ (ureteropelvic junction) obstruction: Code(s): N13.5 - Crossing vessel and stricture of ureter without hydronephrosis Category: Medical (2) Nephrolithiasis: Code(s): N20.0 - Calculus of kidney Category: Medical Plan One year follow-up renal and imaging Orders: Orders US renal BI 12 Months N20.0 - Calculus of kidney Patient Instructions: Imaging studies, laboratory and physical exam results were discussed and reviewed in detail. No major barriers to patient understanding were identified. An opportunity to ask questions regarding the treatment plan was provided. All questions were answered. The patient expressed understanding and agreement with the above treatment plan. The patient is aware they should contact our office by phone for worsening of their current condition or the appearance of new urologic symptoms. Compliance is encouraged with any medications and followup testing that is ordered. It is a privilege to participate in the urologic care of your patient. If you have any questions or concerns regarding treatment for the above conditions, or other urologic issues, please do not hesitate to contact me. The office telephone contact is [phone]. This note is constructed using voice recognition software. While every effort has been made to ensure accuracy greige goods examiner errors may have been included. Yours sincerely, Dr Sean Patterson MD, [facility] - Urology Providers of Expert, Compassionate Care for the Genitourinary System Coding Level of Care Code Tele Est Pt Level 3 (38281) Diagnoses UPJ (ureteropelvic junction) obstruction N13.5 Nephrolithiasis N20.0
== END 2024-10-17 15:50 | disposition home or self-care (01) ==
PROVIDERS: PCP Internal Medicine; Visit Provider Urology
DX: N13.5 Crossing vessel and stricture of ureter without hydronephrosis (principal); N20.0 Calculus of kidney
CPT/HCPCS: 99213

== ENCOUNTER 2024-12-05 09:33 | Outpatient (AMB) | payer OTHER, SELFPAY ==
--- NOTE | 2024-12-05 09:34 | MHC.OFFVIS ---
Vital Signs 12/05/24 09:35 Height 5 ft 6 in Weight 149 lb 7.574 oz BMI 24.1 BP 106/64 Blood Pressure Location Rt brachial Position Sitting Pulse 84 Pulse Source Pulse Oximeter Pulse Oximetry (%) 99 Oxygen Delivery Method Room Air Intake Visit Reasons: Colonoscopy Screening Intake Note: New patient consult for 1st Colonoscopy screening. Patient cc: RLQ pain, hx of hemorrhoids w/ active bleeding, constipation. Denies any other GI issues fir today visit. Faculty I On Call Medical Assistant Required: No Accompanied by: Self / Same As Patient Allergies Penicillins [PENICILLINS] Allergy (Intermediate, Verified 12/05/24 09:35) SWELLING HPI HPI Colonoscopy Screening: Details: 59 year old? female DJD, spinal stenosis is here today for pre colonoscopy screening.? Patient was sent to us by her PCP.? This is her first colonoscopy screening.? Patient denies any gastrointestinal symptoms in the past or at present.? Denies any personal or family history of gastrointestinal disease, colon polyps, or CRC.? Patient never had anesthesia before.? Negative for history of sleep apnea.? Denies any history of cardiac, renal, pulmonary, or hepatic disease.?? No history of infectious? diseases like hepatitis A, B, C, HIV or tuberculosis.? Patient is not on any anticoagulation [facility] Medical History Cervical pain (neck) Breast screening Right lumbar radiculitis Lumbar pain Difficulty sleeping Vitamin D deficiency Constipation, slow transit Lipid disorder Hemorrhoids PPD positive Chronic pauciarticular arthritis Surgical History No pertinent past surgical history Family History Father Acute myocardial infarction Mother Parkinson disease Maternal Grandfather No problems noted. Maternal Grandmother No problems noted. Paternal Grandfather No problems noted. Paternal Grandmother No problems noted. Brother No problems noted. Brother No problems noted. Sister No problems noted. Son No problems noted. Daughter No problems noted. Daughter No problems noted. Daughter No problems noted. Social History Housing: House Alcohol intake: never Patient Tobacco Use Status: Never used Tobacco e-Cigarette/Vaping Use: Never Used Second Hand Smoke Exposure: No service: No Current occupational status: employed Sexual orientation: Straight/Heterosexual Gender identity: Female Cognitive needs: No Hearing needs: No Vision needs: No Review of Systems Const Denies weight gain and Denies weight loss ENT Reports no additional complaints, Denies dysphagia and Denies odynophagia Card Reports no additional complaints Resp Reports no additional complaints GI Denies abdominal pain, Denies belching, Denies melena, Denies bloating, Denies change in bowel habits, Denies dysphagia, Denies excessive flatus, Denies dyspepsia, Denies heartburn, Denies diarrhea, Denies loose stools, Denies nausea, Denies odynophagia and Denies vomiting Musc Reports no additional complaints Neuro Reports no additional complaints Psych Reports no additional complaints Endo Reports no additional complaints Physical Exam Vital Signs: Last Vital Signs Pulse 84 12/05/24 09:35 BP 106/64 12/05/24 09:35 Pulse Ox 99 12/05/24 09:35 Oxygen Delivery Method Room Air 12/05/24 09:35 BMI result Body Mass Index 24.1 Const General: healthy appearing, no acute distress and well developed Nutritional Appearance: well nourished Orientation/consciousness: patient oriented x3 Resp Effort & Inspection: normal respiratory effort, able to speak in complete sentences, no tracheal deviation and symmetric chest movement Auscultation: clear to auscultation bilaterally Cardio Rate: regular rate GI Inspection: Yes normal to inspection and No distended Palpation (GI): Soft to palpation, not firm, nontender and No hepatosplenomegaly present Auscultation: normal bowel sounds General: Yes no CVA tenderness Back/Spine/Pelvis Back: no CVA tenderness Skin General skin exam: elasticity normal, turgor normal and dry skin Neuro General: patient oriented x3 Psych Appearance: grossly normal Mental Status: mental status grossly normal Assessment & Plan Assessment & Plan (1) Colon cancer screening: Code(s): Z12.11 - Encounter for screening for malignant neoplasm of colon Category: Medical Plan Patient denies any GI, cardiac or respiratory symptoms.? Patient never had anesthesia.? Denies any history of sleep apnea.? No history infectious diseases in the past or present.? Not on any anticoagulation therapy.? No family or personal history of colon cancer or polyps.? Patient denies melena, hematochezia, unintentional weight loss or ribbon like stools.? Discussed at length the pre-procedure,? prep, diet & medications as well as what to expect prior, during and after the procedure.?? Stressed the importance of good bowel prep.? Recommended the use of Vaseline or Calmoseptine OTC & baby wipes with bowel movements to promote comfort.? ?Patient verbalizes understanding and agrees to plan of care.? She was given the opportunity to ask questions and all questions answered.? We will see her after the procedure.? Medications: New bisacodyl (Dulcolax (bisacodyl)) take 4 tabs at noon the day before your colonoscopy 20 mg (4 x 5 mg) PO ONCE 1 day 4 tabs 0RF Z12.11 - Encounter for screening for malignant neoplasm of colon polyethylene glycol 3350 (Miralax) As directed by gastroenterology department at [facility] 238 grams PO ONCE 238 grams 0RF Z12.11 - Encounter for screening for malignant neoplasm of colon Coding Level of Care Code New Pt Level 3 (56963) Diagnoses Colon cancer screening Z12.11 Time Spent (min) 40 Comment 30 minutes spent with patient and additional 10 minutes spent reviewing her records
[2024-12-05 09:35] VITALS: BP 106/64; PULSE 84; O2SAT 99; BMI 24.1
== END 2024-12-05 10:41 | disposition home or self-care (01) ==
PROVIDERS: PCP Internal Medicine; Visit Provider Nurse Practitioner Family
DX: Z01.818 Encounter for other preprocedural examination (principal); Z12.11 Encounter for screening for malignant neoplasm of colon
CPT/HCPCS: 99202

== ENCOUNTER → 2024-12-05 09:33 | Outpatient (BNVA) | payer OTHER, SELFPAY | PROVIDERS: PCP Internal Medicine; Visit Provider Nurse Practitioner Family | DX: Z01.818 Encounter for other preprocedural examination (principal) | CPT/HCPCS: 99202 ==

== ENCOUNTER 2025-03-09 13:00 | Outpatient (AMB) | payer OTHER, SELFPAY ==
[2025-03-09 13:03] VITALS: BP 110/72; PULSE 83; O2SAT 97; BMI 24.7
--- NOTE | 2025-03-09 13:03 | MHC.PC.OV ---
Vital Signs 03/09/25 13:03 Height 5 ft 6 in Weight 153 lb BMI 24.7 BP 110/72 Blood Pressure Location Lt brachial Position Sitting Pulse 83 Pulse Source Pulse Oximeter Pulse Oximetry (%) 97 Oxygen Delivery Method Room Air Intake Visit Reasons: r wrist pain/update PCP Allergies Penicillins [PENICILLINS] Allergy (Intermediate, Verified 03/09/25 13:03) SWELLING Medication List - Last Reconciled 03/09/25 by Naldo Canela MD gabapentin 300 mg PO BID hydroxychloroquine 200 mg PO BID Tobacco use date assessed: 03/09/25 Dental Screening Dental Screen Date: 03/09/25 Did you have a dental visit in the last 12 months?: Yes Did you have a dental problem in the last 6 months where you did not have access to dental care?: No Was dental information given to patient?: Patient has dentist HPI r wrist pain/update PCP HPI Details History - The patient is a 59-year-old female presenting with right wrist pain and swelling. - The onset of symptoms occurred several days ago, with noticeable pain beginning a couple of days before the visit. - The patient noticed a small bump on the right wrist before pain developed. 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 - The patient reported significant pain recently, leading to the use of diclofenac and a bandage for relief. - The patient reports improvement with pharmacological intervention but was concerned about the persistence of the cyst causing the discomfort. 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 Problem List - Ganglion Cyst on Right Wrist Patient Instructions - Rest the right wrist to allow for healing. - Use a wrist splint during the day to limit movement and alleviate symptoms. - Purchase wrist splint [id number] from local pharmacies like [facility] or [facility]. - Continue taking diclofenac as prescribed for pain and inflammation. - Consider follow-up with an security systems specialist at [facility] for further evaluation. 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 Maternal Grandmother No problems noted. Paternal Grandfather No problems noted. Paternal Grandmother No problems noted. Brother No problems noted. Brother No problems noted. Sister No problems noted. Son No problems noted. Daughter No problems noted. Daughter No problems noted. Daughter No problems noted. Social History Housing: House Alcohol intake: never Patient Tobacco Use Status: Never used Tobacco e-Cigarette/Vaping Use: Never Used Second Hand Smoke Exposure: No service: No Current occupational status: employed Sexual orientation: Straight/Heterosexual Gender identity: Female Cognitive needs: No Hearing needs: No Vision needs: No Questionnaire PHQ-9 Over the last 2 weeks, how often have you been bothered by any of the following problems? 1. Little interest or pleasure in doing things: several days 2. Feeling down, depressed, or hopeless: several days 3. Trouble falling or staying asleep, or sleeping too much: several days 4. Feeling tired or having little energy: several days 5. Poor appetite or overeating: several days 6. Feeling bad about yourself - or that you are a failure or have let yourself or your family down: several days 7. Trouble concentrating on things, such as reading the newspaper or watching television: several days 8. Moving or speaking so slowly that other people could have noticed. Or the opposite - being so fidgety or restless that you have been moving around a lot more than usual: several days 9. Thoughts that you would be better off or of hurting yourself in some way: several days Total score: 9 Depression Screening Interpretation: Positive Depression Screening Follow-up: Existing condition and Declines treatment Depression Screening Done: Yes 59138 - PHQ-9 Billing: Yes Source: Developed by Drs. Reinaldo Rivera, Carly Perkins, Girish Cage and colleagues, with an educational kesha from [employer]. Thrive Questionnaire Date Thrive assessed: 03/09/25 I am a: Patient What is your living situation today?: I have a steady place to live Within the past 12 months, did the food you bought not last and you didn't have the money to get more?: I choose not to answer this question Within the past 12 months, did you worry whether your food would run out before you got money to buy more?: I choose not to answer this question Do you have trouble paying for medicines?: I choose not to answer this question Do you have trouble getting transportation to medical appointments?: I choose not to answer this question Do you have trouble paying your heating and electricity bill?: I choose not to answer this question Do you have trouble taking care of your child, family member or friend?: I choose not to answer this question Do you have trouble with day-to-day activities such as bathing, preparing meals, shopping, managing finances, etc.?: I choose not to answer this question Are you currently unemployed and looking for a job?: I choose not to answer this question Are you interested in more education?: I choose not to answer this question Please select the resources that you would like help with: None Currently or been in a relationship where the following occur: I choose not to answer THRIVE Score: 0 AUDIT C Alcohol Use Questionnaire (AUDIT-C) 1. How often do you have a drink containing alcohol?: Never 3. How often do you have six or more drinks on one occasion?: Never Total Score: 0 Score Reviewed/Action Taken: Yes JANETH-7 AMB Questionnaire JANETH-7 Date JANETH - 7 assessed: 03/09/25 Feeling nervous, anxious, or on edge: 1 = Several days Not being able to stop or control worryin = Several days Worrying too much about different things: 1 = Several days Trouble relaxin = Several days Being so restless that it is hard to sit still: 1 = Several days Becoming easily annoyed or irritable: 1 = Several days Feeling afraid as if something awful might happen: 1 = Several days Total JANETH-7 score (0-4 normal; 5-9 mild; 10-14 moderate; 15-21 severe): 7 Source: Developed by Drs. Reinaldo Rivera, Carly Perkins, Girish Cage and colleagues, with an educational kesha from [employer]. JANETH-7 Assessment Billing JANETH-7 Assessment Tool: JANETH-7 Assessment 47313 Physical exam (Primary Care) Vital Signs: Last Vital Signs Pulse 83 03/09/25 13:03 BP 110/72 03/09/25 13:03 Pulse Ox 97 03/09/25 13:03 Oxygen Delivery Method Room Air 03/09/25 13:03 BMI result Body Mass Index 24.7 Tobacco/Smoking Status: Tobacco use Status Tobacco use date assessed 03/09/25 03/09/25 13:04 Patient Tobacco Use Status Never used Tobacco 03/09/25 13:04 e-Cigarette/Vaping Use Never Used 03/09/25 13:04 PHQ-9: PHQ-9 Score PHQ-9: Total score 9 03/09/25 13:04 Depression Screening Interpretation: Positive Depression Screening Follow-up: Existing condition and Declines treatment Thrive Assessment: Date of Thrive Assessment Date Thrive assessed 03/09/25 03/09/25 13:04 Currently or been in a relationship where the following occur: I choose not to answer Coding Level of Care Code Est Pt Level 3 (55840) Diagnoses Wrist pain, right M25.531 Ganglion of right wrist M67.431 Laterality: right Additional Codes JANETH-7 Assessment Billing - JANETH-7 Assessment Tool: JANETH-7 Assessment 72247 ([id number]) PHQ-9 - 76194 - PHQ-9 Billing: Yes ([id number]) Assessment & Plan Assessment & Plan (1) Wrist pain, right: Code(s): M25.531 - Pain in right wrist Category: Medical (2) Ganglion cyst of wrist: Code(s): M67.439 - Ganglion, unspecified wrist Category: Medical Qualifiers: Laterality: right Qualified Code(s): M67.431 - Ganglion, right wrist Plan History - The patient is a 59-year-old female presenting with right wrist pain and swelling. - The onset of symptoms occurred several days ago, with noticeable pain beginning a couple of days before the visit. - The patient noticed a small bump on the right wrist before pain developed. 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 - The patient reported significant pain recently, leading to the use of diclofenac and a bandage for relief. - The patient reports improvement with pharmacological intervention but was concerned about the persistence of the cyst causing the discomfort. - The patient's functional ability is impacted due to frequent hand use in the [email or web address] business. Problem List - Ganglion Cyst on Right Wrist Patient Instructions - Rest the right wrist to allow for healing. - Use a wrist splint during the day to limit movement and alleviate symptoms. - Purchase wrist splint [id number] from local pharmacies like [facility] or [facility]. - Continue taking diclofenac as prescribed for pain and inflammation. - Consider follow-up with an security systems specialist at [facility] for further evaluation. Orders: Referrals Orthopedics Referral M25.531 - Pain in right wrist, M67.439 - Ganglion, unspecified wrist
== END 2025-03-09 15:01 | disposition home or self-care (01) ==
LOC: HO.HMCC 13:01
PROVIDERS: PCP Internal Medicine; Visit Provider Internal Medicine
DX: M25.531 Pain in right wrist (principal); M67.431 Ganglion, right wrist

== ENCOUNTER → 2025-03-09 13:00 | Outpatient (BNVA) | payer OTHER, SELFPAY | PROVIDERS: PCP Internal Medicine; Visit Provider Internal Medicine | DX: M25.531 Pain in right wrist (principal); M67.431 Ganglion, right wrist | CPT/HCPCS: 96127; 99212 ==

== ENCOUNTER 2025-04-30 06:32 | Day surgery (SDC) | payer OTHER, SELFPAY ==
[2025-04-30 07:03] VITALS: BP 96/58; PULSE 71; RESP 20; TEMP 36.9; O2SAT 99; BMI 24.2
[2025-04-30] MEDS: Lactated Ringers 1,000 ML 50 ML IVCONT (07:30)
--- NOTE | 2025-04-30 07:45 | MHC.SHP ---
Pre-Procedural Eval Section A - 24 Hr Update-Section A only Date of Service: 04/30/25 Section B - Complete if H&P > 30 days Chief Complaint: Colon cancer screening Relevant Family History (Specify if Yes): No Relevant Social History: None Present Medications: see Short Stay Collaborative assessment Medical History: Significant History (Right lumbar radiculitis Lumbar pain Difficulty sleeping Vitamin D deficiency Constipation, slow transit Lipid disorder Hemorrhoids PPD positive Chronic pauciarticular arthritis) History of Previous Operations: No relevant previous surgery Allergies: Allergies Allergy/AdvReac Type Severity Reaction Status Date / Time Penicillins (PENICILLINS) Allergy Intermediate SWELLING Verified 03/09/25 13:03 Review of Systems Sugical H&P ROS: Negative: Cardiovascular, Respiratory and Gastrointestinal Exam Surgical H&P Exam: Normal: Heart, Normal: Lungs, Normal: Extremities and Normal: Abdomen Plan Diagnosis/Plan: Unchanged I have reviewed the history and physical and performed a pertinent physical examination on my patient. No changes have occurred unless specified. Time Spent With Patient Time: Total time managing care of this patient today ____ minutes.
--- NOTE | 2025-04-30 08:07 | P.CONAN_ITS ---
[facility] Active Problems Active Problems: All Active Problems (Updated 03/09/25 @ 13:21 by Naldo Canela MD) Ganglion cyst of wrist (Acute) Wrist pain, right (Acute) Nephrolithiasis (Acute) Muscle cramping (Acute) Colon cancer screening (Acute) UPJ (ureteropelvic junction) obstruction (Acute) Grieving (Acute) Right lower quadrant pain (Acute) Tired (Acute) Unable to sleep (Acute) Stress at home (Acute) Depression, major, single episode (Acute) Muscle tension pain (Acute) Tension headache (Acute) Pain management (Acute) Spondyloarthropathy of lumbar spine (Acute) Contusion, finger (Acute) Pelvic pain (Acute) Cervical pain (neck) (Acute) Well woman exam with routine gynecological exam (Acute) DJD (degenerative joint disease), lumbar (Acute) Foraminal stenosis of lumbar region (Acute) Spinal stenosis, lumbar (Acute) Breast screening (Acute) Right lumbar radiculitis (Acute) Encounter for general adult medical examination with abnormal findings (Acute) Lumbar pain (Acute) Difficulty sleeping (Acute) Vitamin D deficiency (Acute) Constipation, slow transit (Acute) Lipid disorder (Acute) Hemorrhoids (Acute) Chronic pauciarticular arthritis (Acute) Past Medical History Medical History Cervical pain (neck) Breast screening Right lumbar radiculitis Lumbar pain Difficulty sleeping Vitamin D deficiency Constipation, slow transit Lipid disorder Hemorrhoids PPD positive Chronic pauciarticular arthritis Functional capacity: independent ambulation Patient : No Family History Family History Father Acute myocardial infarction Mother Parkinson disease Maternal Grandfather No problems noted. Maternal Grandmother No problems noted. Paternal Grandfather No problems noted. Paternal Grandmother No problems noted. Brother No problems noted. Brother No problems noted. Sister No problems noted. Son No problems noted. Daughter No problems noted. Daughter No problems noted. Daughter No problems noted. Family history of problems with anesthesia: No Surgical History Surgical History No pertinent past surgical history History of Problems with Anesthesia: No Social History Social History Housing: House Alcohol intake: never Patient Tobacco Use Status: Never used Tobacco e-Cigarette/Vaping Use: Never Used Second Hand Smoke Exposure: No Have you been hit, kicked, punched, or otherwise hurt by someone within the past year? If so, by whom?: No Are you DNR?: No Advance Directives: No Advance Directives Information Provided: Yes service: No Current occupational status: employed Sexual orientation: Straight/Heterosexual Gender identity: Female Cognitive needs: No Hearing needs: No Vision needs: No Meds Allergies Allergy/AdvReac Type Severity Reaction Status Date / Time Penicillins (PENICILLINS) Allergy Intermediate SWELLING Verified 03/09/25 13:03 Active Medications: Current Medications Lactated Ringer's (Lr) 1,000 mls @ 50 mls/hr IVCONT .Q20H MATT Last Admin: 04/30/25 07:30 Dose: 50 mls/hr Home Medications ?Medication ?Instructions ?Recorded ?Confirmed ?Last Taken ?Type hydroxychloroquine 200 mg tablet 200 mg PO BID 0 04/30/25 Unknown History gabapentin 300 mg capsule 300 mg PO BID 12/05/2404/30 Unknown History Exam Height,Weight and Vital Signs: Height 5 ft 6 in Weight 150 lb 3.2 oz Last Vital Signs Temp 98.4 F 04/30/25 07:03 Pulse 71 04/30/25 07:03 Resp 20 04/30/25 07:03 BP 96/58 L 04/30/25 07:03 Pulse Ox 99 04/30/25 07:03 O2 Del Method Room Air 04/30/25 07:03 Airway Mallampati Class: III TM Dist: >3cm Neck ROM: Full Loose/Missing/Broken Teeth: No Heart: RRR Lungs: CTA Assessment and Plan Final Anesthetic Review Family History of Problems with Anesthesia: No History of Problems with Anesthesia: No NPO: Yes ASA Class: I Final Preanesthetic Review: No Changes in Pt Med Stat, Meds/Allgs Chart Reviewed, Consent Obtained/Reviewed and Anes Risks/Benef Reviewed Patient Risk: Low Procedure Risk: Low Anesthetic Plan Anesthetic Plan: TIVA Disposition: Standard PACU
[2025-04-30 08:33] VITALS: BP 101/64
--- NOTE | 2025-04-30 09:24 | HO.OPN-COLON ---
Colonoscopy Operative Note Operative Note Date of Service: 04/30/25 Narrative: COLONOSCOPY TILL CECUM WITH BIOPSIES AND SNARE POLYPECTOMY Pre-op diagnosis: Colon cancer screening (first colon). Post-op diagnosis:? Colon polyps, Diverticulosis, hemorrhoids Endoscopist:? Aaron Dorsey MD Anesthesia:?MAC Consent: Indications for the procedure and potential complications of bleeding, perforation, reaction to medications and missed diagnosis were discussed with the patient and informed consent was obtained. Instrument: Olympus PCF H 190 L variable stiffness pediatric colonoscope Monitoring: Vital signs and clinical assessment, intermittent blood pressure monitoring, continuous EKG monitoring, Pulse oximetry and Carbon Dioxide monitoring were done throughout the procedure. Please see anesthesia flowsheet. Colon withdrawl time was 15 minutes. Procedure: The patient was placed in the left lateral decubitis position and pre-procedure medications were administered. After a digital rectal examination of the ano-rectum, the video colonoscope was inserted into the rectum and advanced through the colon to the cecum. The colonoscope was slowly withdrawn in a retrograde panoramic fashion and the colon mucosa was carefully examined including a retroflexed view of the rectum. Findings and interventions are described below. Procedure Difficulty: without difficulty Findings: Terminal Ileum: Not evaluated Cecum: Normal Ascending Colon: Normal Transverse Colon: Two 8-10 mm sessile polyps - removed with a cold snare Descending Colon: Three 5 to 10 mm sessile polyps - removed with a cold snare and a cold biopsy Sigmoid Colon: Moderate diverticulosis Rectum: A few 4-8 mm diminutive appearing polyps in the rectosigmoid - 1 removed with a cold biopsy Ano-rectum: Moderate internal hemorrhoids and hypertrophied anal papillae Colon preparation: Good after some irrigation. [place] Bowel Preparation Scale Right colon; 2 Transverse colon: 2 Left colon; 2 (0 = Unprepared colon segment with mucosa not seen due to solid stool that cannot be cleared. 1 = Portion of mucosa of the colon segment seen, but other areas of the colon segment not well seen due to staining, residual stool and/or opaque liquid. 2 = Minor amount of residual staining, small fragments of stool and/or opaque liquid, but mucosa of colon segment seen well. 3 = Entire mucosa of colon segment seen well with no residual staining, small fragments of stool or opaque liquid) Impression and Post Procedure Diagnosis: Colonoscopy Findings: Six small to medium sized polyps were removed Moderate diverticulosis seen in the sigmoid colon Moderate hemorrhoids on retroflexed exam. Plan: I will send a letter with biopsy results. Repeat Colonoscopy in 3-5 years if polyps are adenomatous and 10 year if polyps are hyperplastic. Above findings were reviewed with the patient and relevant handouts were given and the discharge area.
[2025-04-30 09:25] VITALS: BP 105/62; PULSE 66; RESP 16; TEMP 36.5; O2SAT 98
[2025-04-30 09:40] VITALS: BP 119/69; PULSE 66; RESP 16; TEMP 36.7; O2SAT 100
== END 2025-04-30 10:09 | disposition home or self-care (01) ==
PROVIDERS: PCP Internal Medicine; Visit Provider Internal Medicine Gastroenterology
PROC: 0DJD8ZZ Inspection of Lower Intestinal Tract, Via Natural or Artificial Opening Endoscopic (ICD-10-PCS; CPT 45378; principal; 2025-04-30 08:30)
DX: Z12.11 Encounter for screening for malignant neoplasm of colon (principal); K63.5 Polyp of colon; K62.1 Rectal polyp; K62.9 Disease of anus and rectum, unspecified; K57.30 Diverticulosis of large intestine without perforation or abscess without bleeding; K64.8 Other hemorrhoids; E55.9 Vitamin D deficiency, unspecified; E78.5 Hyperlipidemia, unspecified; Z79.899 Other long term (current) drug therapy
CPT/HCPCS: 45385; 45380; 88305; J2003; J2250; J2405; J2704

== ENCOUNTER → 2025-04-30 06:32 | Outpatient (BNV) | payer OTHER, SELFPAY | PROVIDERS: PCP Internal Medicine; Visit Provider Internal Medicine Gastroenterology | DX: Z12.11 Encounter for screening for malignant neoplasm of colon (principal); K63.5 Polyp of colon; K29.70 Gastritis, unspecified, without bleeding; K64.8 Other hemorrhoids | CPT/HCPCS: 45380; 45385 ==

== ENCOUNTER 2025-05-14 08:57 | Outpatient (AMB) | payer OTHER, SELFPAY ==
[2025-05-14 08:59] VITALS: BMI 23.7
--- NOTE | 2025-05-14 08:59 | A.OFFVIS_ITS ---
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 Patient has had a cyst around her CMC joint area for the last month. States it has increase in size, causing pain and discomfort. She is also experiencing numbness, swelling, and locking of her middle finger. Patient would like to discuss surgical intervention. Allergies Penicillins (PENICILLINS) Allergy (Intermediate, Verified 05/14/25 09:12) [facility] Medical History Cervical pain (neck) Breast screening Right lumbar radiculitis Lumbar pain Difficulty sleeping Vitamin D deficiency Constipation, slow transit Lipid disorder Hemorrhoids PPD positive Chronic pauciarticular arthritis Surgical History No pertinent past surgical history Family History Father Acute myocardial infarction Mother Parkinson disease Maternal Grandfather No problems noted. Maternal Grandmother No problems noted. Paternal Grandfather No problems noted. Paternal Grandmother No problems noted. Brother No problems noted. Brother No problems noted. Sister No problems noted. Son No problems noted. Daughter No problems noted. Daughter No problems noted. Daughter No problems noted. 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 The cyst is located on the wrist and is described as a herniation off of the wrist joint. The patient reports that the cyst is not painful every day, but on some days, it causes significant discomfort. The patient has been informed that needle aspirations not a safe option of treatment for this cyst due to its location near several arteries and nerves. The patient was advised that surgical removal is an option, although there is a 10-20% chance of recurrence post-surgery. Alternative management options discussed include gentle compression with an sunday bandage to encourage re-uptake of joint fluid. The patient also reports symptoms suggestive of arthritis, which is noted as a common cause of ganglion cysts. Review of Systems - Musculoskeletal: Reports intermittent wrist pain associated with a volar ganglion cyst. Denies constant pain. - Musculoskeletal: Reports symptoms suggestive of arthritis in the fingers. Systems reviewed and are negative except as per HPI and below Physical Exam - Musculoskeletal: approximately 0.5-1 cm in diameter mass noted of the volar and radial aspect of the right wrist, consistent with volar wrist ganglion. Mass is noted to be slightly mobile. Wrist examination showed forward flexion to 75 degrees, extension to 50-60 degrees, pronation to 90 degrees, and supination to 90 degrees. No tenderness to palpation about the mass. Results Procedure Plan The patient was advised that aspiration is not a safe option for this cyst due to its proximity to arteries and nerves. Surgical removal was discussed as an option, with a 10-20% chance of recurrence, but it offers the best odds for permanent relief. Gentle compression with an sunday bandage was recommended to encourage re-uptake of joint fluid, with instructions to apply it for six to eight weeks. The patient was informed that arthritis is a common cause of ganglion cysts, and symptoms suggestive of arthritis were noted. Patient was informed and verbally consented to the use of an ambient scribe for clinic note documentation during this visit. Discussion Notes I discussed with the patient that the volar ganglion cyst is unable to be aspirated with a needle due to its proximity to several nervous and vascular structures. We talked about surgical removal as an option, noting a 10-20% chance of recurrence, but it provides the best chance for permanent relief. I recommended trying gentle compression with an sunday bandage for six to eight weeks to see if it helps reduce the cyst size. I also explained that arthritis is a common cause of ganglion cysts and noted the patient's symptoms suggestive of arthritis. Patient Instructions - Apply gentle compression with an sunday bandage to the wrist for six to eight weeks, removing it for bathing and if uncomfortable during sleep. - Monitor the cyst size and pain; if no improvement, consider discussing surgical options. - Be aware that arthritis can cause ganglion cysts and monitor for any worsening symptoms. Coding Level of Care Code New Pt Level 3 (89687) Diagnoses Ganglion cyst of volar aspect of right wrist M67.431
== END 2025-05-14 09:26 | disposition home or self-care (01) ==
LOC: HO.HOS 08:57
PROVIDERS: PCP Internal Medicine
DX: M67.431 Ganglion, right wrist (principal)
CPT/HCPCS: 99203

== ENCOUNTER → 2025-05-14 08:57 | Outpatient (BNVA) | payer OTHER, SELFPAY | PROVIDERS: PCP Internal Medicine | DX: M67.431 Ganglion, right wrist (principal) | CPT/HCPCS: 99202 ==

== ENCOUNTER 2025-05-22 09:23 | Outpatient (AMB) | payer OTHER, SELFPAY ==
[2025-05-22 09:26] VITALS: BP 110/70; PULSE 70; TEMP 36.6; O2SAT 98; BMI 24.9
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
== END 2025-05-22 11:12 | disposition home or self-care (01) ==
LOC: HO.HMCC 09:24
PROVIDERS: PCP Internal Medicine; Visit Provider Internal Medicine
DX: Z00.01 Encounter for general adult medical examination with abnormal findings (principal); M06.80 Other specified rheumatoid arthritis, unspecified site; E78.9 Disorder of lipoprotein metabolism, unspecified; E55.9 Vitamin D deficiency, unspecified; K64.8 Other hemorrhoids; K59.01 Slow transit constipation; M48.061 Spinal stenosis, lumbar region without neurogenic claudication; D50.9 Iron deficiency anemia, unspecified

== ENCOUNTER → 2025-05-22 09:23 | Outpatient (BNVA) | payer OTHER, SELFPAY | PROVIDERS: PCP Internal Medicine; Visit Provider Internal Medicine | DX: Z00.01 Encounter for general adult medical examination with abnormal findings (principal); K57.90 Diverticulosis of intestine, part unspecified, without perforation or abscess without bleeding; K64.8 Other hemorrhoids; E78.9 Disorder of lipoprotein metabolism, unspecified; E55.9 Vitamin D deficiency, unspecified; K59.01 Slow transit constipation; M48.061 Spinal stenosis, lumbar region without neurogenic claudication; D50.9 Iron deficiency anemia, unspecified; M06.80 Other specified rheumatoid arthritis, unspecified site | CPT/HCPCS: 99396 ==

== ENCOUNTER 2025-07-02 09:11 | Outpatient (REF) | payer OTHER, SELFPAY | END 2025-07-02 09:12 | disposition home or self-care (01) | LOC: HO.HMGCLDS 09:11 | PROVIDERS: PCP Internal Medicine; Visit Provider Internal Medicine | DX: Z13.89 Encounter for screening for other disorder (principal) ==

== ENCOUNTER 2025-07-03 09:16 | Outpatient (REF) | payer OTHER, SELFPAY ==
[2025-07-03 09:36] LABS: MANUAL DIFF FLAG NO
[2025-07-03 10:04] LABS: Hematocrit 33.5 % (37.0-47.0); Hemoglobin 11.0 g/dl (12.0-16.0); Imm Gran Abs Auto 0.01 X10*3/uL (0.00-0.03); Imm Gran Pct Auto 0.2 % (0.0-0.4); Lymphocytes Absolute Auto 1.4 X10*3/uL (1.2-4.9); Mean Corpuscular HGB Conc 32.8 g/dl (31.0-35.0); Mean Corpuscular Hemoglobin 28.4 pg (27.0-33.0); Mean Corpuscular Volume 86.3 fL (80.0-98.0); NRBC Abs Auto 0.000 X10*3/uL (0.0-0.012); NRBC Pct Auto 0.0 /100WBC (0.0-0.2); Platelet Count 175 X10*3/uL (160-400); Red Blood Count 3.88 X10*6/uL (4.20-5.50); White Blood Count 4.2 X10*3/uL (4.8-10.8)
[2025-07-03 11:11] LABS: Alanine Aminotransferase 26 U/L (0-31); Albumin Level 4.4 g/dL (3.5-5.0); Alkaline Phosphatase 57 U/L (39-117); Anion Gap 14 (12-20); Aspartate Amino Transferase 24 U/L (5-31); Blood Urea Nitrogen 11 mg/dL (9-16); Calcium 9.0 mg/dL (8.4-10.2); Carbon Dioxide 25 mmol/L (22-29); Chloride 107 mmol/L (96-108); Cholesterol 268 mg/dL (<200); Estimated Glomerular Filt Rate > 60; Ferritin 81 ng/mL (10-250); HDL Cholesterol 57 mg/dL (>40); Potassium 4.7 mmol/L (3.3-5.1); Sodium 141 mmol/L (135-145); Total Protein 7.5 g/dL (6.5-8.0); Triglycerides 143 mg/dL (<150)
[2025-07-03 11:25] LABS: Vitamin B12 374 pg/mL (200-900)
[2025-07-07 18:23] LABS: Vitamin D 25-OH, D2 <4 ng/mL; Vitamin D 25-OH, D3 24 ng/mL; Vitamin D 25-OH, Total 24 ng/mL (30-100)
== END 2025-07-03 09:17 | disposition home or self-care (01) ==
LOC: HO.LAB 09:16
PROVIDERS: PCP Internal Medicine; Visit Provider Internal Medicine
DX: M48.061 Spinal stenosis, lumbar region without neurogenic claudication (principal); E78.9 Disorder of lipoprotein metabolism, unspecified; E55.9 Vitamin D deficiency, unspecified; K64.8 Other hemorrhoids; K59.01 Slow transit constipation; M67.431 Ganglion, right wrist; D50.9 Iron deficiency anemia, unspecified
CPT/HCPCS: 36415; 80053; 80061; 82306; 82607; 82728; 84443; 85025

== ENCOUNTER 2025-07-10 09:17 | Outpatient (AMB) | payer OTHER, SELFPAY ==
--- NOTE | 2025-07-10 09:43 | A.OFFVIS_ITS ---
Intake Visit Reasons: OV Rt wrist ganglion cyst Intake Note: Gisele is a 60 year old right hand dominant female who presents today for follow up of her right wrist ganglion cyst. At her last visit she was advised to apply gentle compression with an sunday bandage for six to eight week. Patient reports today it continued to bother her from time to time. She does not think it has increased in size. She reports morning numbness and tingling with associated stiffness. Patient is insure if she wishes to discuss surgery today, but expresses significant apprehension and doing so. Allergies Penicillins (PENICILLINS) Allergy (Intermediate, Verified 07/10/25 09:43) SWELLING HPI HPI OV Rt wrist ganglion cyst: Details: Gisele is a 60 year old right hand dominant female who presents today for follow up of her right wrist ganglion cyst. At her last visit she was advised to apply gentle compression with an sunday bandage for six to eight week. Patient reports today it continued to bother her from time to time. She does not think it has increased in size. She reports morning numbness and tingling with associated stiffness. Patient is insure if she wishes to discuss surgery today, but expresses significant apprehension and doing so. [facility] Medical History Cervical pain (neck) Breast screening Right lumbar radiculitis Lumbar pain Difficulty sleeping Vitamin D deficiency Constipation, slow transit Lipid disorder Hemorrhoids PPD positive Chronic pauciarticular arthritis Surgical History No pertinent past surgical history Family History Father Acute myocardial infarction Mother Parkinson disease Maternal Grandfather No problems noted. Maternal Grandmother No problems noted. Paternal Grandfather No problems noted. Paternal Grandmother No problems noted. Brother No problems noted. Brother No problems noted. Sister No problems noted. Son No problems noted. Daughter No problems noted. Daughter No problems noted. Daughter No problems noted. 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 Neuro: Normal sensation of the tips of all digits of the right hand at this time Vascular: Cap refill brisk Pain: Minimal tenderness to palpation of the cyst in the radial and volar aspect of the right wrist No pain with range of motion of the right hand ROM: Patient is able to make a closed fist and extend all digits of the right hand fully and without difficulty Skin: No lacerations or abrasions. General: There is an approximately 1-1.5 cm in diameter ganglion cyst in the volar and radial aspect of the right wrist, significantly smaller than previous evaluation No ecchymosis, erythema, or evidence of infection. Psych: Appears grossly normal Affect normal Attitude cooperative Assessment & Plan Assessment & Plan (1) Ganglion cyst of volar aspect of right wrist: Code(s): M67.431 - Ganglion, right wrist Category: Medical (2) Wrist pain, right: Code(s): M25.531 - Pain in right wrist Category: Medical Plan 1. Volar wrist ganglion cyst of right wrist Significant improvement with compression Patient is educated about this condition Patient is educated about the typical treatment course Patient once again expresses she would like to not move forward with any surgical intervention at this time, as compression has proved fairly effective Patient may continue with compression therapy Patient will also be referred to OT for range of motion and strengthening of the right hand Patient understands this is amenable to this plan Follow-up as needed Orders: Orders OT Evaluation and Treatment Today M25.531 - Pain in right wrist, M67.431 - Ganglion, right wrist Coding Level of Care Code Est Pt Level 3 (71752) Diagnoses Ganglion cyst of volar aspect of right wrist M67.431 Wrist pain, right M25.531
== END 2025-07-10 09:57 | disposition home or self-care (01) ==
LOC: HO.HOS 09:18
PROVIDERS: PCP Internal Medicine
DX: M67.431 Ganglion, right wrist (principal); M25.531 Pain in right wrist
CPT/HCPCS: 99213

== ENCOUNTER → 2025-07-10 09:17 | Outpatient (BNVA) | payer OTHER, SELFPAY | PROVIDERS: PCP Internal Medicine | DX: M67.431 Ganglion, right wrist (principal); M25.531 Pain in right wrist | CPT/HCPCS: 99212 ==

== ENCOUNTER 2025-07-24 11:13 | Outpatient (REF) | payer OTHER, SELFPAY ==
--- NOTE | ~2025-07-24 | MM_ITS ---
EXAMINATION: MM SCREENING DIGITAL BREAST TOMOSYNTHESIS, BILATERAL CLINICAL INFORMATION: Screening. Asymptomatic. COMPARISON: Mammography: Comparison is made with available priors TECHNIQUE: Digital breast mammography with tomosynthesis is performed in both the craniocaudal and mediolateral oblique views along with computer-aided detection (CAD). FINDINGS: There are scattered areas of fibroglandular density (ACR BI-RADS breast composition Category b). There are no significant masses, abnormal calcifications, or other abnormalities. MM/MM tomosynthesis screening BI IMPRESSION: No mammographic evidence of malignancy. ASSESSMENT: BI-RADS BI-RADS 1 - Negative RECOMMENDATION: Routine annual mammography screening. 1 year F/U This examination should not preclude the clinical evaluation of a suspicious palpable abnormality. This patient's information was entered into a reminder system with a target due date for their next mammogram. Electronically signed by: Tanisha Baig DO 07/27/2025 01:19 PM EDT
== END 2025-07-24 11:14 | disposition home or self-care (01) ==
LOC: HO.MAMMO 11:13
PROVIDERS: PCP Internal Medicine; Visit Provider Internal Medicine
DX: Z12.31 Encounter for screening mammogram for malignant neoplasm of breast (principal)
CPT/HCPCS: 77063; 77067

== ENCOUNTER → 2025-07-24 11:45 | Outpatient (BNV) | payer OTHER, SELFPAY | PROVIDERS: PCP Internal Medicine; Visit Provider Internal Medicine | DX: Z12.31 Encounter for screening mammogram for malignant neoplasm of breast (principal) | CPT/HCPCS: 77063; 77067 ==

== ENCOUNTER 2025-08-14 12:59 | Outpatient (RCR) | payer OTHER, SELFPAY ==
--- NOTE | 2025-08-14 14:34 | MHC.OT.OEV ---
[facility] Office [address] [facility] [address] [facility] [phone] F: [phone] F: [phone] Occupational Therapy Evaluation Patient Name: Gisele Banks Diagnosis: (R)wrist pain and ganglion cyst Date of Onset: Date of Surgery: Attending Provider: Michael Florence Prescribed Treatment: MD Follow Up Appointment: History of Current Condition: Patient is a 60 y/o (R)hand dominate female with PMHx of pauciarticular arthritis, ganglion cyst who was referred to skilled OT with c/o volar wrist pain. Patient reports the pain has been going on for 3 months. She stated she has the most pain in the morning (9/10) but throughout the day it gets better. Her fingers feel stiff in the morning and notices edema in the 4th finger; she will use hot water for pain management and joint mobility. At rest she states a 0/10 pain at rest. She has difficulty with opening jars and bottles. Denies numbness/tingling. She reports wrist pain as an 8/10 where the ganglion cyst is present. Patient owns compression gloves and is using compression wrapping for management of cyst. 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 She enjoys gardening Significant Medical History: pauciarticular arthritis Ganglion cyst Precautions/Contraindications: NO ULTRASOUND- RA Patient Goals: Hand Dominance: Right Observations: QuickDASH Score: 38.6% Prior Level of Function and Occupation Self Care, Employment, Leisure: Own's Restaurant (I)ADLs/IADLs Gardening Living Situation, Family and/or Social Support: Lives with daughter Current Level of Function and Occupation Self Care, Employment, Leisure: min (A) IADLs is not participating in gardening Sleep: Wakes due to the pain Driving: Vision: Balance: Pain Assessment Pain Score: 8 Pain Scale Used: Pain Location and Description: 9/10 fingers 8/10 wrist 0/10 at rest Aggravating Factors: Alleviating Factors: taking pain medication Skin and Soft Tissue Assessment Skin and Soft Tissue: Comments: Buchard's nodes present Nerve assessment Ulnar Nerve: Median Nerve: Radial Nerve: Comments: Sensory Assessment Temperature: Light Touch: Proprioception: Vibration: Comments: Edema Assessment Upper Extremity: Lower Extremity: Comments: (R)18.2MCPs, 14.5wrist =32.7cms (L)19MCPs, 15wrist= 34cms Dexterity Assessment Dexterity: Comments: Special Tests Comments: AROM(PROM) Strength Cervical Cervical Flexion: Cervical Extension: Cervical Lateral Flexion: Cervical Rotation: Comments: Shoulder Flexion: Extension: Abduction: Internal Rotation: External Rotation: Comments: WFL Flexion: Extension: Abduction: Internal Rotation: External Rotation: Comments: Elbow Flexion: Extension: Pronation: Supination: Comments: WFL Flexion: Extension: Pronation: Supination: Comments: Wrist Flexion: 69 Extension: 40 Ulnar Deviation: 15 Radial Deviation: 14 Comments: Flexion: Extension: Ulnar Deviation: Radial Deviation: Comments: Thumb Thumb CMC Flexion: Thumb MCP Flexion: Thumb IP Flexion: Radial Abduction: Palmar Abduction: [place] (Kapandji 0-10): Comments: WFL Digits Index MCP: PIP: DIP: Long MCP: PIP: DIP: Ring MCP: PIP: DIP: Small MCP: PIP: DIP: Comments: can make a composite fist Gross Grasp: (R)24lbs., (L)30lbs. Lateral Pinch: Two-Point Pinch: Three-Jaw Bennie: Comments: Patient Education Primary Language: Watch Parts Grinder Required: Yes Current Knowledge: Understands information with skills for self-management Teaching Method: Verbal Education Needs Identified on Evaluation: ADL's Disease Information Equipment Use Exercise Pain How did patient/family demonstrate learning? Patient demonstrates Patient verbalizes Barriers to Learning: None Readiness for Learning: Accepting Who was educated? 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 Quick DASH= 38.6% indicating patient's perceived impairment of the UE during self care tasks. It was noted that patient's signs/symptoms are consistent with OA of the hand as she reported stiffness in the morning and Buchard's nodes were present. OT will treat accordingly and will re-assess as needed. At this time it is recommend patient receive skilled OT intervention in order to maintain joint integrity and to achieve her PLOF. Thank for your referral. 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 LTG Duration: 4 weeks Fdc Goals: Patient will report 1/10 pain during ADLs patient will be (I) with HEP Patient will report decreased Quick DASH score to 10% or less Frequency and Duration: The patient will be seen 2x a week for 4 weeks Treatment Plan: Therapeutic Exercise Therapeutic Activity Home Exercise Program Splinting Neuro Re-ed Patient Education Desensitization/Sensory Re-ed Edema Control ADL Training NMES Iontophoresis Paraffin Fluidotherapy MHP Cold Packs Joint Mobilization Soft Tissue Mobilization Kinesiotaping Other (see comments) Electronically Signed By: Beatrice Bridges OTR/L, CLT Reviewed/agree with student documentation: Therapist: Please sign and return to therapist, Thank you for your referral.
--- NOTE | 2025-08-30 08:35 | MHC.OT.DC ---
[facility] Office [address] [facility] [address] [facility] [phone] F: [phone] F: [phone] Occupational Therapy Discharge Note Patient Name: Gisele Banks Provider: Michael Florence Diagnosis: (R)wrist pain and ganglion cyst Date of Surgery: Date of Evaluation: 08/14/25 Date of Discharge: Treatments to Date: 1 Cancellations to Date: No Shows to Date: Discharge Status: Visit Non-compliance Discharge Summary: Patient is d/c'd from skilled OT as she has not returned to therapy. Electronically Signed By: CRISTAL Mcelroy/Dann, CLT Reviewed/agree with student documentation: Therapist: Please Sign and return to therapist, thank you for your referral.
== END 2025-08-30 08:36 | disposition home or self-care (01) ==
LOC: HO.OT 12:59
PROVIDERS: PCP Internal Medicine
DX: M67.431 Ganglion, right wrist (principal); M25.531 Pain in right wrist
CPT/HCPCS: 97165

== ENCOUNTER 2025-09-18 08:41 | Outpatient (AMB) | payer OTHER, SELFPAY ==
[2025-09-18 08:42] VITALS: BP 110/70; PULSE 77; RESP 16; TEMP 36.8; O2SAT 99; BMI 25.8
--- NOTE | 2025-09-18 08:42 | MHC.PC.OV ---
Vital Signs 09/18/25 08:42 Height 5 ft 6 in Weight 160 lb BMI 25.8 BP 110/70 Blood Pressure Location Rt brachial Position Sitting Respiration 16 Pulse 77 Pulse Source Pulse Oximeter Temp 98.2 F Temp Source Oral Pulse Oximetry (%) 99 Oxygen Delivery Method Room Air Intake Visit Reasons: hemorrhoids Allergies Penicillins (PENICILLINS) Allergy (Intermediate, Verified 09/18/25 08:43) SWELLING Medication List - Last Reconciled 09/18/25 by Naldo Canela MD atorvastatin (Lipitor) 10 mg PO BEDTIME diclofenac sodium 75 mg PO BID PRN diclofenac sodium 1% 2 - 3 grams topical BID PRN gabapentin 100 mg PO BEDTIME hydroxychloroquine 200 mg PO BID Tobacco use date assessed: 09/18/25 Dental Screening Dental Screen Date: 03/09/25 HPI hemorrhoids HPI Details History of Present Illness The patient is a 60-year-old female presenting for management of hemorrhoids. Hemorrhoids: - The patient reports frequent flare-ups of hemorrhoids, which are associated with significant pain and bleeding. - She believes the bleeding contributes to her anemia. - A prior colonoscopy revealed moderate internal hemorrhoids. - She notes that they sometimes protrude externally. - She has never seen a surgeon for this condition and has not used any treatments for the flare-ups. Constipation: - The patient reports intermittent constipation, which she associates with certain foods and leads to straining during bowel movements. Medical History: - Hemorrhoids (moderate internal on prior colonoscopy) - Anemia, suspected by patient Problem List - Hemorrhoids with bleeding - Constipation - Anemia Plan - To manage hemorrhoids and prevent flare-ups, the primary goal is to avoid constipation. - Start MiraLAX, one capful dissolved in a full glass of water daily, to soften stools. - Prescribed prednisone suppositories for inflammation; if not covered by insurance, a cream will be prescribed as an alternative. - Recommended sitz baths with warm water. - Use [id number] witch rakesh wipes for cleansing, which can help with itching and pain. - This treatment regimen should be followed for 7-10 days. - Surgery is not indicated at this time as it is painful and hemorrhoids can recur. - Follow-up is scheduled for October. 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 Maternal Grandmother No problems noted. Paternal Grandfather No problems noted. Paternal Grandmother No problems noted. Brother No problems noted. Brother No problems noted. Sister No problems noted. Son No problems noted. Daughter No problems noted. Daughter No problems noted. Daughter No problems noted. 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 1. Little interest or pleasure in doing things: several days 2. Feeling down, depressed, or hopeless: several days 3. Trouble falling or staying asleep, or sleeping too much: several days 4. Feeling tired or having little energy: several days 5. Poor appetite or overeating: several days 6. Feeling bad about yourself - or that you are a failure or have let yourself or your family down: several days 7. Trouble concentrating on things, such as reading the newspaper or watching television: several days 8. Moving or speaking so slowly that other people could have noticed. Or the opposite - being so fidgety or restless that you have been moving around a lot more than usual: several days 9. Thoughts that you would be better off or of hurting yourself in some way: several days Total score: 9 Depression Screening Interpretation: Positive Depression Screening Follow-up: Existing condition and Declines treatment Depression Screening Done: Yes 47376 - PHQ-9 Billing: Yes Source: Developed by Drs. Reinaldo Rivera, Carly Perkins, Girish Cage and colleagues, with an educational kesha from [employer]. Thrive Questionnaire Date Thrive assessed: 03/09/25 I am a: Patient What is your living situation today?: I have a steady place to live Within the past 12 months, did the food you bought not last and you didn't have the money to get more?: I choose not to answer this question Within the past 12 months, did you worry whether your food would run out before you got money to buy more?: I choose not to answer this question Do you have trouble paying for medicines?: I choose not to answer this question Do you have trouble getting transportation to medical appointments?: I choose not to answer this question Do you have trouble paying your heating and electricity bill?: I choose not to answer this question Do you have trouble taking care of your child, family member or friend?: I choose not to answer this question Do you have trouble with day-to-day activities such as bathing, preparing meals, shopping, managing finances, etc.?: I choose not to answer this question Are you currently unemployed and looking for a job?: I choose not to answer this question Are you interested in more education?: I choose not to answer this question Please select the resources that you would like help with: None Currently or been in a relationship where the following occur: I choose not to answer THRIVE Score: 0 JANETH-7 AMB Questionnaire JANETH-7 Date JANETH - 7 assessed: 03/09/25 Feeling nervous, anxious, or on edge: 0 = Not at all Not being able to stop or control worryin = Not at all Worrying too much about different things: 0 = Not at all Trouble relaxin = Not at all Being so restless that it is hard to sit still: 0 = Not at all Becoming easily annoyed or irritable: 0 = Not at all Feeling afraid as if something awful might happen: 0 = Not at all Total JANETH-7 score (0-4 normal; 5-9 mild; 10-14 moderate; 15-21 severe): 0 Source: Developed by Drs. Reinaldo Rivera, Carly Perkins, Girish Cage and colleagues, with an educational kesha from [employer]. Physical exam (Primary Care) Vital Signs: Last Vital Signs Temp 98.2 F 09/18/25 08:42 Pulse 77 09/18/25 08:42 Resp 16 09/18/25 08:42 BP 110/70 09/18/25 08:42 Pulse Ox 99 09/18/25 08:42 Oxygen Delivery Method Room Air 09/18/25 08:42 BMI result Body Mass Index 25.8 Tobacco/Smoking Status: Tobacco use Status Tobacco use date assessed 09/18/25 09/18/25 08:49 Patient Tobacco Use Status Never used Tobacco 09/18/25 08:49 e-Cigarette/Vaping Use Never Used 09/18/25 08:49 PHQ-9: PHQ-9 Score PHQ-9: Total score 9 09/18/25 09:03 Depression Screening Interpretation: Positive Depression Screening Follow-up: Existing condition and Declines treatment Thrive Assessment: Date of Thrive Assessment Date Thrive assessed 03/09/25 09/18/25 08:49 Currently or been in a relationship where the following occur: I choose not to answer Coding Level of Care Code Est Pt Level 3 (18685) Diagnoses Hemorrhoids that prolapse with straining, but retract spontaneously K64.1 Constipation, slow transit K59.01 Chronic anemia D64.9 Additional Codes PHQ-9 - 77402 - PHQ-9 Billing: Yes ([id number]) Assessment & Plan Assessment & Plan (1) Hemorrhoids that prolapse with straining, but retract spontaneously: Code(s): K64.1 - Second degree hemorrhoids Category: Medical (2) Constipation, slow transit: Code(s): K59.01 - Slow transit constipation Category: Medical (3) Chronic anemia: Code(s): D64.9 - Anemia, unspecified Category: Medical Plan Hemorrhoids: - The patient reports frequent flare-ups of hemorrhoids, which are associated with significant pain and bleeding. - She believes the bleeding contributes to her anemia. - A prior colonoscopy revealed moderate internal hemorrhoids. - She notes that they sometimes protrude externally. - She has never seen a surgeon for this condition and has not used any treatments for the flare-ups. Constipation: - The patient reports intermittent constipation, which she associates with certain foods and leads to straining during bowel movements. Medical History: - Hemorrhoids (moderate internal on prior colonoscopy) - Anemia, suspected by patient Problem List - Hemorrhoids with bleeding - Constipation - Anemia Plan - To manage hemorrhoids and prevent flare-ups, the primary goal is to avoid constipation. - Start MiraLAX, one capful dissolved in a full glass of water daily, to soften stools. - Prescribed prednisone suppositories for inflammation; if not covered by insurance, a cream will be prescribed as an alternative. - Recommended sitz baths with warm water. - Use anon-qwe-qgalift witch rakesh wipes for cleansing, which can help with itching and pain. - This treatment regimen should be followed for 7-10 days. - Surgery is not indicated at this time as it is painful and hemorrhoids can recur. - Follow-up is scheduled for October. Medications: New polyethylene glycol 3350 (Miralax) 17 grams PO DAILY 1,530 grams 0RF 90 days hydrocortisone 2.5% 1 appl HI BID-QID PRN 30 grams 0RF hemorrhoids
== END 2025-09-18 09:59 | disposition home or self-care (01) ==
LOC: HO.HMCC 08:41
PROVIDERS: PCP Internal Medicine; Visit Provider Internal Medicine
DX: K64.1 Second degree hemorrhoids (principal); K59.01 Slow transit constipation; D64.9 Anemia, unspecified

== ENCOUNTER → 2025-09-18 08:41 | Outpatient (BNVA) | payer OTHER, SELFPAY | PROVIDERS: PCP Internal Medicine; Visit Provider Internal Medicine | DX: K64.1 Second degree hemorrhoids (principal); K59.01 Slow transit constipation; K64.9 Unspecified hemorrhoids; Z13.31 Encounter for screening for depression | CPT/HCPCS: 96127; 99212 ==

== ENCOUNTER 2025-10-15 09:56 | Outpatient (REF) | payer OTHER, SELFPAY ==
--- NOTE | ~2025-10-15 | US_ITS ---
CLINICAL HISTORY: N20.0 - Calculus of kidney US Renal Comparison: None provided Findings: Right kidney normal size and echotexture, 11.7 cm length. Left kidney normal size and echotexture, 11.7 cm length. No definite hydronephrosis (mild fullness of the right renal pelvis noted on a single view). No ultrasound evidence of renal stone or mass. IMPRESSION: No definite hydronephrosis (mild fullness of the right renal pelvis noted on a single view). No ultrasound evidence of renal stone or mass. This document has been electronically signed by: Gabrielle Nguyễn MD on 10/15/2025 12:32:15
== END 2025-10-15 09:57 | disposition home or self-care (01) ==
LOC: HO.HMGCX 09:56
PROVIDERS: PCP Internal Medicine; Visit Provider Urology
DX: N20.0 Calculus of kidney (principal)
CPT/HCPCS: 76775

== ENCOUNTER → 2025-10-15 10:00 | Outpatient (BNV) | payer OTHER, SELFPAY | PROVIDERS: PCP Internal Medicine; Visit Provider Radiology Diagnostic Radiology | DX: N20.0 Calculus of kidney (principal) | CPT/HCPCS: 76775 ==

== ENCOUNTER 2025-10-22 10:22 | Outpatient (AMB) | payer OTHER, SELFPAY ==
--- NOTE | 2025-10-22 10:32 | A.OFFVIS_ITS ---
Intake Visit Reasons: 1y/UA/US Intake Note: Reason for Visit: 1Y Ultrasound/UA Follow Up Urology Meds: None Blood Thinners: None Labs: BUN: 11 Creatinine: 0.77 Imaging: Renal Ultrasound 10/15/2025 Last PVR: None Collar Tacker Required: No Accompanied by: Self / Same As Patient Allergies Penicillins (PENICILLINS) Allergy (Intermediate, Verified 10/22/25 10:35) SWELLING HPI Comments Details: Gisele is a [place] female patient of Dr. Canela. She has a past medical history of cervical pain, right lumbar radicular days, vitamin-D deficiency, constipation, lipid disorder, hemorrhoids, and chronic pauciarticular arthritis. She presents to the office today for follow-up of her nephrolithiasis question of UPJ stone. In discussion with the patient today she reports to be doing and feeling well. She denies having had any bothersome urinary issues or concerns since her last office visit here approximately 1 year ago. Most recent renal imaging results reviewed with the patient today 11/01 bilateral kidneys are normal in size and echotexture. No definite hydronephrosis. Mild fullness of the right renal pelvis noted on a single-view. No ultrasound evidence of renal stones or renal masses per radiology report. In office urinalysis results reviewed with the patient today. She denies urinary urgency, urinary frequency, incontinence, nocturia, hematuria, dysuria, foul smelling urine, changes to urinary stream, flank pain, fever, and or chills. She is happy with her current voiding parameters. All questions were answered. She otherwise offers no other issues or concerns at this time. BUN: 10/26 10, 523 23, 07/02 11 Creatinine: 1 12/27 0.88. 03/30 0.9, 07/02 0.77 PREVIOUS OFFICE NOTE: Follow-up imaging Lasix renogram indicates normal function with no evidence of UPJ obstruction Follow-up 12 months for nephrolithiasis with nurse-practitioner Nephrolithiasis Imaging with small stones Hydronephrosis Imaging - 08/01 CT Scan - Asymmetric dilatation of the right renal pelvis, AP diameter 2.4 cm with narrowing at the level of the ureteropelvic pelvic junction. 6 mm right renal pole - 10/31 Lasix renogram - 1. Differential renal function: Left 53.9%, Right 46.1%., 2. Left kidney has non-obstructive parameters after diuresis, 3. Right kidney has non-obstructive parameters after diuresis PFSH Medical History Cervical pain (neck) Breast screening Right lumbar radiculitis Lumbar pain Difficulty sleeping Vitamin D deficiency Constipation, slow transit Lipid disorder Hemorrhoids PPD positive Chronic pauciarticular arthritis Surgical History No pertinent past surgical history Family History Father Acute myocardial infarction Mother Parkinson disease Maternal Grandfather No problems noted. Maternal Grandmother No problems noted. Paternal Grandfather No problems noted. Paternal Grandmother No problems noted. Brother No problems noted. Brother No problems noted. Sister No problems noted. Son No problems noted. Daughter No problems noted. Daughter No problems noted. Daughter No problems noted. 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 Sexual orientation: Straight/Heterosexual Gender identity: Female Cognitive needs: No Hearing needs: No Vision needs: No Review of Systems Const All systems reviewed & are unremarkable except as noted in HPI and below Physical Exam Const General: cooperative, healthy appearing, comfortable, no acute distress, well developed, alert and awake Orientation/consciousness: patient oriented x3 Limitations: no limitations HEENT Head: Yes normal to inspection, Yes normocephalic and Yes atraumatic Ears: hearing grossly normal bilaterally Eyes General: appearance normal, both eyes and all related structures Neck Neck: Yes normal visual inspection and Yes trachea midline Chest Chest palpation & inspection: normal inspection of the chest Resp Effort & Inspection: normal respiratory effort and able to speak in complete sentences Cardio Rate: regular rate GI Inspection: Yes normal to inspection General: Yes no CVA tenderness Back/Spine/Pelvis Back: no CVA tenderness Skin General skin exam: no rashes or lesions noted Neuro General: patient oriented x3 Extrem General: Yes normal to inspection Psych Appearance: grossly normal and well kempt Mental Status: mental status grossly normal Speech and movement: Normal speech and movement present and Clear speech present Affect: normal affect Attitude: cooperative Thought process: Normal thought process present Thought content: Normal thought content present Insight: Fair insight present (Psych) Judgement: Fair judgement present (Psych) Results AMB Urinalysis, Automated UA Leukoctes 0 Ginna/uL Last Edit by Rocío Willard A on 10/22/25 10:41 UA Nitrite Negative Last Edit by Rocío Willard, A on 10/22/25 10:41 UA Urobilinogen 0.2 mg/dL Last Edit by Rocío Willard, A on 10/22/25 10:4 1 UA Protein 0 mg/dL Last Edit by Rocío Willard [facility] on 10/22/25 10:41 UA pH 6.0 Last Edit by Rocío Willard, A on 10/22/25 10:41 UA Blood 0 Yusuf/uL Last Edit by Rocío Willard [facility] on 10/22/25 10:41 UA Specific [place] 1.010 Last Edit by Rocío Willard, [facility] on 10/22/25 10: 41 UA Ketone Negative Last Edit by Rocío Willard [facility] on 10/22/25 10:41 UA Bilirubin 0 mg/dL Last Edit by Rocío Willard [facility] on 10/22/25 10:41 UA Glucose 0 mg/dL Last Edit by Rocío Willard [facility] on 10/22/25 10:41 Results Reviewed Results Reviewed: Laboratory Last Values Urine pH (Auto) 6.0 10/22/25 10:40 Specific [place] (Auto) 1.010 10/22/25 10:40 Urine Protein (Auto) 0 mg/dL 10/22/25 10:40 Glucose (UA)(Auto) 0 mg/dL 10/22/25 10:40 Urine Ketones (Auto) Negative 10/22/25 10:40 Urine Blood (Auto) 0 Yusuf/uL 10/22/25 10:40 Urine Nitrite (Auto) Negative 10/22/25 10:40 Urine Bilirubin (Auto) 0 mg/dL 10/22/25 10:40 Urine Urobilinogen (Auto) 0.2 mg/dL 10/22/25 10:40 Leukocyte Esterase (Auto) 0 Ginna/uL 10/22/25 10:40 Date of Service: 10/15/25 Procedure(s): US renal BI Findings: Right kidney normal size and echotexture, 11.7 cm length. Left kidney normal size and echotexture, 11.7 cm length. No definite hydronephrosis (mild fullness of the right renal pelvis noted on a single view). No ultrasound evidence of renal stone or mass. IMPRESSION: No definite hydronephrosis (mild fullness of the right renal pelvis noted on a single view). No ultrasound evidence of renal stone or mass. Assessment & Plan Assessment & Plan (1) UPJ (ureteropelvic junction) obstruction: Code(s): N13.5 - Crossing vessel and stricture of ureter without hydronephrosis Category: Medical (2) Nephrolithiasis: Code(s): N20.0 - Calculus of kidney Category: Medical Plan In office urinalysis results reviewed with the patient today; as noted above. Most recent renal imaging results reviewed with the patient today; as noted above. She currently denies any bothersome urinary issues or concerns. She reports be happy with her current voiding parameters. Will continue with surveillance monitoring. Will obtain renal ultrasound in 1 year. Will obtain BUN and creatinine 1 year Follow-up in 1 year with imaging; or sooner with any issues, concerns, and or questions. Orders: Orders Creatinine 1 Year R39.15 - Urgency of urination AMB Urinalysis Automated Today Z13.9 - Encounter for screening, unspecified US renal BI 1 Year N20.0 - Calculus of kidney Blood Urea Nitrogen 1 Year R39.15 - Urgency of urination Patient Instructions: The patient had an opportunity to ask questions regarding the treatment plan. All questions were answered. Physical exam, labs, and imaging were discussed and reviewed in detail. As well as risks, benefits, and discussion of treatment choices. No major barriers to understanding were identified. The patient expressed understanding and agreement with the above treatment plan. The patient was made aware they should contact our office by phone for worsening of their current condition, the appearance of new symptoms, or with any quest ions or concerns. Compliance is encouraged with any medications and follow up testing that is ordered. It is a privilege to be allowed the opportunity to participate in? your urological care.? Again, if you have any questions or concerns If you have any questions or concerns please do not hesitate to contact me. The office is [phone]. This note is constructed using voice recognition software. While every effort has been made to ensure accuracy core stacker errors may have been included. Yours sincerely, JUAN C Parmar Coding Level of Care Code Est Pt Level 3 (21360) Diagnoses UPJ (ureteropelvic junction) obstruction N13.5 Nephrolithiasis N20.0
== END 2025-10-22 10:56 | disposition home or self-care (01) ==
LOC: HO.HUSH 10:23
PROVIDERS: PCP Internal Medicine; Visit Provider Nurse Practitioner Family
DX: N13.5 Crossing vessel and stricture of ureter without hydronephrosis (principal); N20.0 Calculus of kidney; Z13.9 Encounter for screening, unspecified
CPT/HCPCS: 99213

== ENCOUNTER → 2025-10-22 10:22 | Outpatient (BNVA) | payer OTHER, SELFPAY | PROVIDERS: PCP Internal Medicine; Visit Provider Nurse Practitioner Family | DX: N20.0 Calculus of kidney (principal); N13.5 Crossing vessel and stricture of ureter without hydronephrosis | CPT/HCPCS: 81003; 99212 ==